=== PATIENT | female | born 1950 | race Caucasian/White ===

== ENCOUNTER 2021-11-07 12:00 | Emergency (ER) | payer OTHER, MEDICAID ==
[~2021-11-07] VITALS: Ht 162.6 cm; Wt 99.8 kg
[2021-11-07 12:11] VITALS: BP 129/82
--- NOTE | 2021-11-07 12:18 | NUR ---
LOBBY Addendum: 11/07/21 at 1224 by [email or web address] HANDED ON URINE CUP.
--- NOTE | 2021-11-07 12:20 | NUR ---
BIB DAUGHTER C/O VAGINAL BLEEDING X4 DAYS, LOWER ABD PAIN X TODAY AND DIARRHEA X 2 MONTHS. DENIES DIARRHEA TODAY. PMH: HLD, HTN, DM, ASTHMA, ARTHRITIS, MASS IN UTERUS.
--- NOTE | 2021-11-07 12:21 | NUR ---
BLOOD SUGAR 230 AT THIS TIME.
--- NOTE | 2021-11-07 12:30 | NUR ---
Patient being evaluated by DR VALENTINE at TRIAGE ROOM.
[2021-11-07] MEDS ORDERED: MORPHINE SULFATE 2 MG/ML SYR IM ONE (12:35)
[2021-11-07 13:00] LABS: BASOPHILS % (AUTO) 0.4 % (0.0-2.0); EOSINOPHILS # (AUTO) 0.2 K/uL (0-0.4); EOSINOPHILS % (AUTO) 2.2 % (0.0-4.0); HEMATOCRIT 34.7 % (36-48); HEMOGLOBIN 11.4 g/dL (12.0-16.0); LYMPHOCYTES # (AUTO) 3.1 K/uL (2.5-16.5); LYMPHOCYTES % (AUTO) 28.7 % (20.5-51.1); MEAN CORPUSCULAR HEMOGLOBIN 28 pg (27-31); MEAN CORPUSCULAR HGB CONC 33 g/dL (33-37); MEAN CORPUSCULAR VOLUME 83.9 fL (80-94); MONOCYTES # (AUTO) 0.6 K/uL (0.8-1.0); MONOCYTES % (AUTO) 5.3 % (1.7-9.3); NEUTROPHILS # (AUTO) 6.8 K/uL (1.8-7.7); NEUTROPHILS % (AUTO) 63.4 % (42.2-75.2); PLATELET COUNT (AUTO) 283 K/uL (140-450); RED BLOOD CELL COUNT(AUTO) 4.14 MIL/uL (4.20-5.40); RED CELL DISTRIBUTION WIDTH 14.7 % (11.6-13.7); WHITE BLOOD COUNT (AUTO) 10.7 K/uL (4.8-10.8)
[2021-11-07 13:30] LABS: ALBUMIN 3.2 g/dL (3.4-5.0); ANION GAP 13.7 (8-16); ASPARTATE AMINOTRANSFERASE 14 U/L (15-37); CARBON DIOXIDE 27.5 mmol/L (21-32); CHLORIDE 104 mmol/L (98-107); CREATININE 0.7 mg/dL (0.6-1.3); GLUCOSE 245 mg/dL (74-106); POTASSIUM 4.2 mmol/L (3.5-5.1); SODIUM SERUM 141 mmol/L (136-145); TOTAL BILIRUBIN 0.3 mg/dL (0.0-1.0); UREA NITROGEN, BLOOD 15 mg/dL (7-18)
[2021-11-07 13:46] LABS: PROTHROMBIN TIME 10.3 secs (10.8-13.4)
--- NOTE | 2021-11-07 14:02 | NUR ---
Pt ambulated to bed 11 for examination by .
[2021-11-07] MEDS ORDERED: ACET-8386 PO (14:19)
[2021-11-07] MEDS ORDERED: IBUP-2213 PO (14:19)
[2021-11-07] MEDS ORDERED: MEDR10TA PO (14:36)
[2021-11-07] MEDS ORDERED: NITR100C7 PO (14:44)
[2021-11-07 15:01] VITALS: BP 154/86
--- NOTE | 2021-11-07 15:01 | NUR ---
Patient discharged with v/s stable. Written and verbal after care instructions given and explained. Patient alert, oriented and verbalized understanding of instructions. Ambulatory with steady gait. All questions addressed prior to discharge. ID band removed. Patient advised to follow up with PMD. Rx of HYDROCODNE/ACETAMINOPHEN, IBUPROFEN, PROVERA, MACROBID given. Patient educated on indication of medication including possible reaction and side effects. Opportunity to ask questions provided and answered.
[2021-11-07 15:12] LABS: APPEARANCE,URINE SL CLOUDY (CLEAR); BILIRUBIN,URINE 2+ (NEGATIVE); BLOOD, URINE 3+ (NEGATIVE); COLOR,URINE BROWN (YELLOW); LEUKOCYTE ESTERASE ,URINE 1+ (NEGATIVE); NITRITE, URINE POSITIVE (NEGATIVE); PH,URINE 6.5 (5.0-9.0); UGLUCOSE TRACE (NEGATIVE)
[2021-11-07 15:37] LABS: RBC,URINE 50-80 /HPF (0-5); WBC,URINE 0-5 /HPF (0-5)
[2021-11-07 15:38] LABS: OTHER CASTS, URINE None Seen /LPF (None Seen)
== END 2021-11-07 15:01 | disposition home or self-care (01) ==
LOC: MED 12:00
DX: N93.9 Abnormal uterine and vaginal bleeding, unspecified (principal); E11.9 Type 2 diabetes mellitus without complications; I10 Essential (primary) hypertension; Z79.899 Other long term (current) drug therapy
CPT/HCPCS: 36415; 76830; 80053; 81001; 85025; 85610; 85730; 87086; 93976; 96372; 99284; J2270

== ENCOUNTER 2022-03-14 16:32 | Inpatient (IN) | payer OTHER ==
[~2022-03-14] VITALS: Ht 160 cm; Wt 83.9 kg
[~2022-03-14 16:32] MED LIST: ACET-8386 PO; IBUP-2213 PO; MEDR10TA PO; NITR100C7 PO
--- NOTE | 2022-03-14 16:32 | NUR ---
PT BIBA, BLS, TO BED 11.
[2022-03-14 16:35] VITALS: BP 153/90
[2022-03-14] MEDS ORDERED: ONDANSETRON 4 MG/2 ML VIAL IVP ONE (16:50)
--- NOTE | 2022-03-14 16:50 | NUR ---
ERMD AT BEDSIDE.
--- NOTE | 2022-03-14 16:57 | NUR ---
71 Y/O FEMALE BIBA FROM HOME C/O ABD PAIN 10/10 DESCRIBES ACHING AND CRAMPING GENERALIZED NON-RADIATING X1DAY. PT STATES LAST BM X3DAYS, STATES +N/-V, + DIZZINESS. DENIES FEVER/CHILLS. ABD IS LARGE, ROUND, BOWEL SOUNDS ACTIVE X4, TENDERNESS TO PALPATION AND MOVEMENT, LAST BM X3DAYS. PMH: DM, HTN, HLD NKA
[2022-03-14] MEDS ORDERED: NACL 0.9% 1,000 ML IV ONE ×2 (17:00→17:45)
[2022-03-14] MEDS ORDERED: MORPHINE SULFATE 4 MG/ML SYR IVP ONE ×2 (17:00→17:45)
--- NOTE | 2022-03-14 17:09 | NUR ---
OBTAINED CT CONSENT PLACED IN PT CHART.
--- NOTE | 2022-03-14 17:10 | NUR ---
BLOOD COLLECTED AND WALKED TO LAB
[2022-03-14 17:14] LABS: BASOPHILS # (AUTO) 0.1 K/uL (0.00-0.22); BASOPHILS % (AUTO) 0.5 % (0.0-2.0); EOSINOPHILS # (AUTO) 0.1 K/uL (0-0.4); EOSINOPHILS % (AUTO) 0.3 % (0.0-4.0); HEMATOCRIT 34.8 % (36-48); HEMOGLOBIN 11.1 g/dL (12.0-16.0); LYMPHOCYTES # (AUTO) 1.8 K/uL (2.5-16.5); LYMPHOCYTES % (AUTO) 11.1 % (20.5-51.1); MEAN CORPUSCULAR HEMOGLOBIN 25 pg (27-31); MEAN CORPUSCULAR HGB CONC 32 g/dL (33-37); MEAN CORPUSCULAR VOLUME 78.3 fL (80-94); MONOCYTES # (AUTO) 0.7 K/uL (0.8-1.0); MONOCYTES % (AUTO) 4.1 % (1.7-9.3); NEUTROPHILS # (AUTO) 13.9 K/uL (1.8-7.7); PLATELET COUNT (AUTO) 237 K/uL (140-450); RED BLOOD CELL COUNT(AUTO) 4.45 MIL/uL (4.20-5.40); RED CELL DISTRIBUTION WIDTH 17.7 % (11.6-13.7); WHITE BLOOD COUNT (AUTO) 16.5 K/uL (4.8-10.8)
[2022-03-14 17:38] LABS: ALBUMIN 3.8 g/dL (3.4-5.0); ANION GAP 13.5 (8-16); ASPARTATE AMINOTRANSFERASE 43 U/L (15-37); CARBON DIOXIDE 24.5 mmol/L (21-32); CHLORIDE 103 mmol/L (98-107); CREATININE 0.6 mg/dL (0.6-1.3); GLUCOSE 183 mg/dL (74-106); LIPASE 54 U/L (73-393); SODIUM SERUM 136 mmol/L (136-145); TOTAL BILIRUBIN 0.4 mg/dL (0.0-1.0); UREA NITROGEN, BLOOD 15 mg/dL (7-18)
[2022-03-14] MEDS ORDERED: PIPERACILLIN/TAZOBACTAM 3.375 GM in DEXTROSE 5% 50 ML IV ONE (17:45)
[2022-03-14] MEDS ORDERED: PIPERACILLIN/TAZOBACTAM 3.375 GM VIAL IV ONE (17:53)
--- NOTE | 2022-03-14 18:19 | NUR ---
PT TAKEN TO CT VIA [facility]
[2022-03-14 18:41] LABS: APPEARANCE,URINE CLEAR (CLEAR); BILIRUBIN,URINE NEGATIVE (NEGATIVE); BLOOD, URINE TRACE-I (NEGATIVE); COLOR,URINE YELLOW (YELLOW); LEUKOCYTE ESTERASE ,URINE NEGATIVE (NEGATIVE); NITRITE, URINE NEGATIVE (NEGATIVE); UGLUCOSE NEGATIVE (NEGATIVE)
[2022-03-14 18:45] LABS: RBC,URINE 0-5 /HPF (0-5)
[2022-03-14 18:46] LABS: WBC,URINE NONE SEEN /HPF (0-5)
--- NOTE | 2022-03-14 19:24 | NUR ---
GAVE REPORT TO GHAZALA RODRIGUEZ. TRANSFER OF CARE AT THIS TIME.
--- NOTE | 2022-03-14 19:35 | NUR ---
REPORT RECEIVED FROM GHAZALA RODRIGUEZ. CONTINUITY OF PT CARE AT THIS TIME.
--- NOTE | 2022-03-14 19:48 | NUR ---
PT LAYING IN BED LOCKED IN LOWEST POSITION W X2 SIDERAILS UP FOR PT SAFETY. PT AWAKE AND ALERT, DENIES ANY PAIN AT THIS TIME OR OTHER SYMPTOMS. ABDOMEN TENDER UPON PALPATION. PT VOIDED ON BED POTTRE APPROX 300CC. PT CONNECTED TO MONITOR W VSS. BREATHING EVEN AND UNLABORED. WILL CONTINUE TO MONITOR. SIGNIFICANT OTHER AT BEDSIDE.
--- NOTE | 2022-03-14 20:22 | NUR ---
Dr. Staples examining patient.
[2022-03-14] MEDS ORDERED: POLYETHYLENE GLYCOL 17 GM/PKT PO ONE (20:25)
[2022-03-14] MEDS ORDERED: SODIUM PHOSPHATE 118 ML ENEM RC ONE (20:25)
[2022-03-14] MEDS ORDERED: LACTULOSE 20 GM/30 ML UDC PO ONE (20:25)
--- NOTE | 2022-03-14 20:30 | NUR ---
swab for efren sent to lab
[2022-03-14] MEDS ORDERED: METF-1253 PO ×2 (21:40)
[2022-03-14] MEDS ORDERED: ZOLPIDEM 5 MG TAB PO PRN (21:40)
[2022-03-14] MEDS ORDERED: guaiFENesin DM 200/20 MG-10 ML 10 ML UDC PO PRN (21:40)
[2022-03-14] MEDS ORDERED: ONDANSETRON 4 MG/2 ML VIAL IM/IVP PRN (21:40)
[2022-03-14] MEDS ORDERED: ACETAMINOPHEN 325 MG TAB PO PRN (21:40)
[2022-03-14] MEDS ORDERED: MONT10TA35 PO (21:40)
[2022-03-14] MEDS ORDERED: DOCUSATE SODIUM 100 MG GELCAP PO PRN (21:40)
[2022-03-14] MEDS ORDERED: LORA10TA19 PO (21:40)
[2022-03-14] MEDS ORDERED: HYDROcodone/APAP 7.5/325 MG 1 TAB PO PRN (21:40)
[2022-03-14] MEDS ORDERED: POTASSIUM CHLORIDE 10 MEQ TABER PO PRN (21:40)
[2022-03-14] MEDS ORDERED: OMEP40EC23 PO (21:40)
[2022-03-14] MEDS ORDERED: SODIUM PHOSPHATE 118 ML ENEM RC SCH (21:45)
[2022-03-14] MEDS ORDERED: ATOR40TA PO (21:54)
[2022-03-14] MEDS ORDERED: CHOLECALCIFEROL 1000 UNIT PO (21:54)
[2022-03-14] MEDS ORDERED: GABA300C PO (21:54)
[2022-03-14] MEDS ORDERED: LOSARTAN HCTZ PO (21:54)
[2022-03-14] MEDS ORDERED: AMLO5TAB PO (21:54)
--- NOTE | 2022-03-14 22:00 | NUR ---
PT REPORTS SHE WAS ABLE TO PAS A SMALL AMOUNT OF BOWL AT THIS TIME AND PLENTY OF LIQUID.
[2022-03-14 22:35] LABS: AMYLASE 31 U/L (25-115); CHOL/HDL RATIO 3.2 (1-4.5); FREE T4 (FREE THYROXINE) 1.03 ng/dL (0.76-1.46); HDL CHOLESTEROL 44 mg/dL (40-60); LDL (CALC) 74 mg/dL (60-100); MAGNESIUM 1.8 mg/dL (1.8-2.4); PHOSPHORUS 3.4 mg/dL (2.5-4.9); THYROID STIMULATING HORMONE 1.58 uIU/mL (0.34-3.74); TRIGLYCERIDES 115 mg/dL (30-150)
[2022-03-14 22:40] LABS: BARBITURATE, URINE NEGATIVE ng/ml (NEG <=200); BENZODIAZEPINE, URINE NEGATIVE ng/mL (NEG <=200); CANNABINOID, URINE NEGATIVE ng/mL (NEG <=50); COCAINE, URINE NEGATIVE ng/mL (NEG <=300); OPIATE, URINE POSITIVE ng/mL (NEG <=2000); PHENCYCLIDINE SCREEN,URINE NEGATIVE ng/mL (NEG <=25)
--- NOTE | 2022-03-14 22:42 | NUR ---
Patient will be admitted to care of DR. CENTENO. Admited to [facility]. Will go to [id number]. Belongings list completed. Report to GHAZALA STEELE.
[2022-03-14 22:50] VITALS: BP 146/79
--- NOTE | 2022-03-14 22:50 | NUR ---
PT TRANSPORTED VIA GURNEY. PT IS AWAKE ON RA SATING 95%. PT HAS 20 GAUGE LEFT AC RUNNING D5% NS9% AT 140 ML/HR. PT IS AAOX4. CLEAR LUNG SOUNDS. ABD DISTENDED AND SOFT. NO HEART MURMURS. PT IS NOT ABLE TO AMBULATE DUE TO ABD PAIN. PT WAS EDUCATED PAYMENT POSTER LIGHT SYSTEM AND ROOM ENVIRONMENT. CALL LIGHT WITHIN REACH. ALL SAFETY MEASURES TAKEN. WILL CONTINUE TO MONITOR THE PT.
[2022-03-14] MEDS: POLYETHYLENE GLYCOL 17 GM/PKT PO SCH (23:08)
[2022-03-14] MEDS: DEXT 5% /NACL 0.9% 1,000 ML IV SCH (23:10)
[2022-03-15] VITALS: BP 118/61
--- NOTE | 2022-03-15 00:16 | NUR ---
PT UNAVAILABLE AT THIS TIME WILL RETURN AT A LATER TIME FOR EKG
--- NOTE | 2022-03-15 00:25 | NUR ---
PT STATED SHE HAD A BIG BM. SHE IS FEELING BETTER. NO OTHER COMPLAINS. ALL SAFETY MEASURES TAKEN. WILL CONTINUE TO MONITOR THE PT.
[2022-03-15] MEDS ORDERED: PIPERACILLIN/TAZOBACTAM 3.375 GM VIAL IV ONE (02:13)
[2022-03-15] MEDS: PIPERACILLIN/TAZOBACTAM 3.375 GM in DEXTROSE 5% 50 ML IV SCH ×3 (02:16→18:38)
--- NOTE | 2022-03-15 02:20 | NUR ---
ALL DUE MEDS GIVEN. NO ADVERSE REACTION NOTED. WILL CONTINUE TO MONITOR THE PT.
[2022-03-15 04:00] VITALS: BP 120/65
--- NOTE | 2022-03-15 04:30 | NUR ---
PT IS SLEEPING IN BED COMFORTABLY. PT IS NOT IN ANY ACUTE DISTRESS. BREATHING EVEN AND UNLABORED. IVF RUNNING PER MD ORDER. CALL LIGHT WITHIN REACH. ALL SAFETY MEASURES TAKEN. WILL CONTINUE TO MONITOR THE PT.
[2022-03-15] MEDS: DEXT 5% /NACL 0.9% 1,000 ML IV SCH ×3 (04:49→22:23)
[2022-03-15 07:01] LABS: BASOPHILS # (AUTO) 0.1 K/uL (0.00-0.22); BASOPHILS % (AUTO) 0.6 % (0.0-2.0); EOSINOPHILS # (AUTO) 0.1 K/uL (0-0.4); EOSINOPHILS % (AUTO) 0.6 % (0.0-4.0); HEMATOCRIT 31.6 % (36-48); HEMOGLOBIN 10.2 g/dL (12.0-16.0); LYMPHOCYTES # (AUTO) 2.3 K/uL (2.5-16.5); LYMPHOCYTES % (AUTO) 16.3 % (20.5-51.1); MEAN CORPUSCULAR HEMOGLOBIN 26 pg (27-31); MEAN CORPUSCULAR HGB CONC 32 g/dL (33-37); MEAN CORPUSCULAR VOLUME 78.7 fL (80-94); MONOCYTES # (AUTO) 0.8 K/uL (0.8-1.0); MONOCYTES % (AUTO) 5.4 % (1.7-9.3); NEUTROPHILS % (AUTO) 77.1 % (42.2-75.2); PLATELET COUNT (AUTO) 202 K/uL (140-450); RED BLOOD CELL COUNT(AUTO) 4.01 MIL/uL (4.20-5.40); RED CELL DISTRIBUTION WIDTH 17.9 % (11.6-13.7); WHITE BLOOD COUNT (AUTO) 14.2 K/uL (4.8-10.8)
--- NOTE | 2022-03-15 07:09 | NUR ---
ENDORSED PT TO DAY SHIFT RN FOR CONTINUITY OF CARE. PT IS STABLE.
[2022-03-15 07:15] LABS: PROTHROMBIN TIME 10.1 secs (10.8-13.4)
[2022-03-15 07:20] LABS: ANION GAP 13.5 (8-16); CARBON DIOXIDE 24.7 mmol/L (21-32); CHLORIDE 107 mmol/L (98-107); CREATININE 0.7 mg/dL (0.6-1.3); GLUCOSE 209 mg/dL (74-106); POTASSIUM 3.2 mmol/L (3.5-5.1); SODIUM SERUM 142 mmol/L (136-145); UREA NITROGEN, BLOOD 10 mg/dL (7-18)
--- NOTE | 2022-03-15 07:20 | NUR ---
RECEIVED REPORT FROM SHAPER HAND NURSE. PT IS LYING ON HER BED, CHEST RISES ON ROOM AIR, BREATHING UNLABORED. PT IS AMBULATORY, BUT NEEDS ASSISTANCE GOING TO THE REST ROOM. PT HAS A PACEMAKER. CONTINENT OF THE BOWEL AND BLADDER. SKIN IS WARM AND INTACT. IV IN PLACE ON LEFT AC, 20G, INFUSING WELL. PT IS STABLE. WILL CONTINUE TO MONITOR. Addendum: 03/15/22 at 1448 by Sean Combs RN RN DISREGARD NOTE. WRONG PT
--- NOTE | 2022-03-15 07:30 | NUR ---
RECEIVED REPORT FROM [employer] SALES NURSE. PT IS LYING ON HER BED, CHEST RISES ON ROOM AIR, BREATHING UNLABORED. PT IS AMBULATORY. CONTINENT OF THE BOWEL AND BLADDER. SKIN IS WARM AND INTACT. IV IN PLACE ON LEFT AC, 20G, INFUSING WELL. PT IS STABLE. WILL CONTINUE TO MONITOR.
[2022-03-15 08:00] VITALS: BP 112/50
[2022-03-15] MEDS ORDERED: NON-FORMULARY ITEM (Metformin HCl (Metformin Hcl) 1 TAB) PO SCH (09:00)
--- NOTE | 2022-03-15 09:13 | NUR ---
PATIENT HAS BEEN SCREENED AND CATEGORIZED HIGH NUTRITION RISK. PATIENT WILL BE SEEN WITHIN 1-2 DAYS OF ADMISSION. / ALICIA GOLDEN RD
[2022-03-15] MEDS: PANTOPRAZOLE 40 MG TABEC PO SCH (09:20)
[2022-03-15] MEDS: LACTULOSE 20 GM/30 ML UDC PO SCH ×2 (09:21→23:08)
[2022-03-15] MEDS: metFORMIN 500 MG TAB PO SCH ×2 (09:26→17:45)
[2022-03-15] MEDS: POLYETHYLENE GLYCOL 17 GM/PKT PO SCH ×2 (09:29→23:08)
--- NOTE | 2022-03-15 10:00 | NUR ---
PER CAROLKAREN- RATE FOR PT'S PACEMAKER IS AT 50. WILL CONTINUE TO MONITOR. Addendum: 03/15/22 at 1447 by Sean Combs RN RN DISREGARD LAST NOTE. WRONG PT
--- NOTE | 2022-03-15 11:30 | NUR ---
PT RESTING IN BED. FAMILY AT BEDSIDE. NO S/S OF DISTRESS. BREATHING IS SYMMETRICAL. CALL LIGHT IN REACH. ALL SAFETY MEASURES IN PLACE.
--- NOTE | 2022-03-15 14:30 | NUR ---
PT LYING ON HER BED, NO DISTRESS AT THIS TIME.
[2022-03-15 16:00] VITALS: BP 119/57
--- NOTE | 2022-03-15 17:49 | NUR ---
K-DUR MEDICATION GIVEN, POTASSIUM IS LOW. PT REFUSED TO TAKE METFORMIN. WILL CONTINUE TO MONITOR.
--- NOTE | 2022-03-15 19:20 | NUR ---
GAVE REPORT TO MACHINE PACKAGER NURSE, PT IS STABLE. PLAN OF CARE DISCUSSED.
[2022-03-15 20:00] VITALS: BP 125/82
--- NOTE | 2022-03-15 22:30 | NUR ---
ROUNDS , C/O MILD ABDL PAIN - WILL MEDICATE .
[2022-03-15] MEDS: MONTELUKAST SODIUM 10 MG TAB PO SCH (23:09)
[2022-03-16] VITALS: BP 132/60
--- NOTE | 2022-03-16 02:00 | NUR ---
ASSISTING TO THE REST ROOM - PER PT SHE HAS NO BM YET .
[2022-03-16] MEDS: DEXT 5% /NACL 0.9% 1,000 ML IV SCH ×3 (02:16→17:10)
[2022-03-16] MEDS: PIPERACILLIN/TAZOBACTAM 3.375 GM in DEXTROSE 5% 50 ML IV SCH ×3 (02:28→17:16)
[2022-03-16 04:00] VITALS: BP 132/60
--- NOTE | 2022-03-16 04:00 | NUR ---
ROUNDS , PER PT SHE HAS ON AND OFF BEARABLE ADBL .PAIN . WILL CONT. TO MONITOR
--- NOTE | 2022-03-16 06:00 | NUR ---
ROUNDS - IV SITE INFILTRATED - REMOVE IV NEEDLE - INTACT AND MIN BLEEDING . WILL RE INSERT NEW ONE .
--- NOTE | 2022-03-16 06:30 | NUR ---
RE INSERT NEW IV SITE - PROCEDURE TOLERATED WELL BY THE PT - MIN. BLEEDING - WILL CONT. TO MONITOR .
[2022-03-16 06:59] LABS: BASOPHILS % (AUTO) 0.4 % (0.0-2.0); EOSINOPHILS # (AUTO) 0.3 K/uL (0-0.4); EOSINOPHILS % (AUTO) 2.4 % (0.0-4.0); HEMATOCRIT 32.1 % (36-48); HEMOGLOBIN 10.4 g/dL (12.0-16.0); LYMPHOCYTES # (AUTO) 2.5 K/uL (2.5-16.5); LYMPHOCYTES % (AUTO) 23.7 % (20.5-51.1); MEAN CORPUSCULAR HEMOGLOBIN 25 pg (27-31); MEAN CORPUSCULAR HGB CONC 32 g/dL (33-37); MEAN CORPUSCULAR VOLUME 78.1 fL (80-94); MONOCYTES # (AUTO) 0.8 K/uL (0.8-1.0); MONOCYTES % (AUTO) 7.7 % (1.7-9.3); NEUTROPHILS % (AUTO) 65.8 % (42.2-75.2); PLATELET COUNT (AUTO) 176 K/uL (140-450); RED BLOOD CELL COUNT(AUTO) 4.11 MIL/uL (4.20-5.40); RED CELL DISTRIBUTION WIDTH 17.5 % (11.6-13.7); WHITE BLOOD COUNT (AUTO) 10.7 K/uL (4.8-10.8)
--- NOTE | 2022-03-16 07:40 | NUR ---
ENDORSE - PT - STABLE - I ENDORSE TO CONRAD RN - HOLD THE METFORMIN FOR 48HRS .AND SHE HAVE TO REMINDS THE DOCTOR THIS AM DURING ROUNDS , ABOUT BS MONITORING . NURSE CONRAD VERBALIZES UNDERSTANDING .
[2022-03-16] MEDS: metFORMIN 500 MG TAB PO SCH ×3 (08:00→17:00)
--- NOTE | 2022-03-16 08:00 | NUR ---
OPENING RECEIVED PATIENT LAYING IN BED, AWAKE ALERT AND ORIENTED, PATIENT WAS COMPLAINING OF ABDOMINAL PAIN AND WAS HAVING DIFFICULTY HAVING A BOWEL MOVEMENT. PATIENT SKIN IA WARM DRY AND INTACT, NO PRESENCE OF PRESSURE INJURY OR SORES. S1 AND S2 HEARD UPON AUSCULTATION OF THE HEART SOUNDS, NO EXTRA SOUNDS HEARD. PATIENT LUNGS ARE CLEAR AND BOWELS SOUNDS ARE NORMAL ACTIVE, ABDOMEN DISTENDED BUT SOFT. CALL LIGHT WITHIN REACH, PERSONAL BELONGINGS WITHIN REACH. BE AT LOWEST POSITION AND LOCKED.
[2022-03-16 08:08] LABS: T4 (THYROXINE) 6.6 ug/dL (4.5-12.0)
[2022-03-16 08:17] LABS: ANION GAP 13.7 (8-16); CARBON DIOXIDE 25.9 mmol/L (21-32); CHLORIDE 107 mmol/L (98-107); CREATININE 0.7 mg/dL (0.6-1.3); GLUCOSE 203 mg/dL (74-106); POTASSIUM 3.6 mmol/L (3.5-5.1); SODIUM SERUM 143 mmol/L (136-145); UREA NITROGEN, BLOOD 6 mg/dL (7-18)
[2022-03-16] MEDS: POLYETHYLENE GLYCOL 17 GM/PKT PO SCH ×2 (09:00→21:53)
[2022-03-16] MEDS: LACTULOSE 20 GM/30 ML UDC PO SCH ×2 (09:01→21:53)
[2022-03-16] MEDS: PANTOPRAZOLE 40 MG TABEC PO SCH (09:03)
--- NOTE | 2022-03-16 12:00 | NUR ---
PATIENT DAUGHTER AT BEDSIDE, PATIENT HAD A BOWEL MOVEMENT, FORMED. PATIENT STILL WITH UNRELIEVED ABDOMINAL PAIN. DAUGHTER ASKING ABOUT DISCHARGE, CALL LIGHT WITHIN REACH, PERSONAL BELONGINGS NEAR BY, BED AT LOWEST POSITION AND LOCKED.
--- NOTE | 2022-03-16 13:46 | NUR ---
03/16/22 RD INITIAL ASSESSMENT COMPLETED PLEASE REFER TO NUTRITION ASSESSMENT UNDER CARE ACTIVITY FOR ESTIMATED NUTRITIONAL NEEDS. 1. WHEN/IF MEDICALLY APPROPRIATE TO START ORAL INTAKE, [facility] 2. PROVIDED NUTRITION EDUCATION FOR DIABETES AND CONSTIPATION WITH HANDOUTS 3. RD TO FOLLOW-UP 2-3 DAYS, HIGH RISK ALICIA GOLDEN RD
--- NOTE | 2022-03-16 14:53 | NUR ---
DC PLANNING: THE PATIENT ADMITTED FROM HOME WITH C/O ABDOMINAL PAIN AND CONSTIPATION. H/O DM, HTN, HYPERLIPIDEMIA AND OVARIAN CANCER PER HER DAUGHTER. WBC'S 16.5, CT ABD/PELVIS SHOWS VENTRAL HERNIA CONTAINING BOWEL LOOPS AND CONSTIPATION. STARTED ON ZOSYN IV, IVF'S, LACTULOSE AND MIRALAX. SURGICAL CONSULT ORDERED FOR HERNIA. CM SPOKE WITH THE PATIENTS DAUGHTER RAGHAV BY PHONE AND CONFIRMED HER ADDRESS AND PHONE NUMBER. THE PATIENT LIVES WITH HER DAUGHTER, SON IN LAW AND GRANDCHILD IN A SINGLE STORY HOUSE. SHE HAD SURGERY IN DECEMBER OF THIS YEAR FOR OVARIAN CANCER AND HAS BEEN AMBULATING LESS SINCE THEN USING A FWW. THE PATIENT HAS A GLUCOMETER AND SEES HER PCP DR CROWELL AT [facility] NEEDED. SHE REQUIRES ASSISTANCE WITH ADL'S AND HER DAUGHTER IN LAW IS IN THE PROCESS OF APPLYING TO BE HER IHSS WORKER SHE CURRENTLY GOES EVERYDAY TO HELP THE PATIENT NEEDED. THE PATIENT HAS NOT HAD HOME HEALTH IN THE PAST OR BEEN IN A SNF. THE FAMILY WOULD LIKE HOME HEALTH WHEN THE PATIENT DISCHARGES AND UNDERSTANDS THAT IT WILL BE AN AGENCY THAT THE PATIENT INSURANCE CONTRACTS WITH. DC PLAN IS TO RETURN HOME WHEN STABLE, CM WILL FOLLOW. Addendum: 03/16/22 at 1503 by Elana Peters CM Amended: Links added.
[2022-03-16 15:38] VITALS: BP 138/70
--- NOTE | 2022-03-16 18:00 | NUR ---
PATIENT LAYING IN BED WITH SON AT BEDSIDE, PERSONAL BELONGINGS, CALL LIGHT WITHIN REACH, BED AT LOWEST POSITION.
--- NOTE | 2022-03-16 20:00 | NUR ---
PER AM NURSE , PT HAD BM , PT NOT C.O PAIN. .
[2022-03-16] MEDS: MONTELUKAST SODIUM 10 MG TAB PO SCH (21:53)
--- NOTE | 2022-03-17 | NUR ---
ROUNDS , NO COMPLAIN MADE .
--- NOTE | 2022-03-17 02:00 | NUR ---
SLEEPING . CALL LIGHT WITHIN REACH
[2022-03-17] MEDS: PIPERACILLIN/TAZOBACTAM 3.375 GM in DEXTROSE 5% 50 ML IV SCH ×2 (03:00→10:23)
--- NOTE | 2022-03-17 04:00 | NUR ---
NO COMPLAIN MADE .
--- NOTE | 2022-03-17 06:00 | NUR ---
I FOUND PT WEARING ABDL BINDER - SHE SAID SHE IS COMFORTABLE W/ IT .- WILL ENDORSE.
[2022-03-17] MEDS: DEXT 5% /NACL 0.9% 1,000 ML IV SCH ×2 (06:24→06:52)
[2022-03-17 06:44] LABS: BASOPHILS % (AUTO) 0.4 % (0.0-2.0); EOSINOPHILS # (AUTO) 0.4 K/uL (0-0.4); EOSINOPHILS % (AUTO) 4.6 % (0.0-4.0); HEMATOCRIT 30.4 % (36-48); HEMOGLOBIN 9.9 g/dL (12.0-16.0); LYMPHOCYTES % (AUTO) 33.3 % (20.5-51.1); MEAN CORPUSCULAR HEMOGLOBIN 26 pg (27-31); MEAN CORPUSCULAR HGB CONC 33 g/dL (33-37); MEAN CORPUSCULAR VOLUME 78.1 fL (80-94); MONOCYTES # (AUTO) 0.7 K/uL (0.8-1.0); MONOCYTES % (AUTO) 8.4 % (1.7-9.3); NEUTROPHILS # (AUTO) 4.7 K/uL (1.8-7.7); NEUTROPHILS % (AUTO) 53.3 % (42.2-75.2); PLATELET COUNT (AUTO) 170 K/uL (140-450); RED CELL DISTRIBUTION WIDTH 18.3 % (11.6-13.7); WHITE BLOOD COUNT (AUTO) 8.9 K/uL (4.8-10.8)
[2022-03-17 06:50] LABS: ANION GAP 10.6 (8-16); CARBON DIOXIDE 25.9 mmol/L (21-32); CHLORIDE 109 mmol/L (98-107); CREATININE 0.6 mg/dL (0.6-1.3); GLUCOSE 219 mg/dL (74-106); POTASSIUM 3.5 mmol/L (3.5-5.1); SODIUM SERUM 142 mmol/L (136-145); UREA NITROGEN, BLOOD 3 mg/dL (7-18)
--- NOTE | 2022-03-17 07:31 | NUR ---
ENDORSE - PT - STABLE . - ENDORSE TO RN TO INFORM DR. DAVI COOK IF IT IS OK THE PT. WEARING HENOKL . SANDRO - RN VERBALIZES UNDERSTANDING .
[2022-03-17 08:00] VITALS: BP 129/92
[2022-03-17] MEDS ORDERED: DOCU-299 PO (08:43)
[2022-03-17] MEDS ORDERED: POLY17PD72 PO (08:43)
[2022-03-17] MEDS: LACTULOSE 20 GM/30 ML UDC PO SCH (09:06)
[2022-03-17] MEDS: metFORMIN 500 MG TAB PO SCH (09:07)
[2022-03-17] MEDS: PANTOPRAZOLE 40 MG TABEC PO SCH (09:07)
[2022-03-17] MEDS: POLYETHYLENE GLYCOL 17 GM/PKT PO SCH (09:08)
[2022-03-17 13:24] VITALS: BP 129/92
--- NOTE | 2022-03-17 14:00 | NUR ---
patient home in stable condition and dc instructions given. home per wheelchair accompanied by family.
== END 2022-03-17 14:25 | disposition home or self-care (01) | DRG 872 ==
LOC: MED 16:32 → MTU 21:34
PROVIDERS: ADMIT Family Medicine; ATTEND Family Medicine
DX: A41.9 Sepsis, unspecified organism (principal); E86.0 Dehydration; K52.9 Noninfective gastroenteritis and colitis, unspecified; K56.41 Fecal impaction; K43.9 Ventral hernia without obstruction or gangrene; E87.6 Hypokalemia; J45.909 Unspecified asthma, uncomplicated; E11.9 Type 2 diabetes mellitus without complications; E66.9 Obesity, unspecified; Z20.822 Contact with and (suspected) exposure to COVID-19; E78.5 Hyperlipidemia, unspecified; I10 Essential (primary) hypertension; Z90.710 Acquired absence of both cervix and uterus; Z79.899 Other long term (current) drug therapy; Z90.49 Acquired absence of other specified parts of digestive tract; Z85.43 Personal history of malignant neoplasm of ovary; Z85.42 Personal history of malignant neoplasm of other parts of uterus; Z68.32 Body mass index [BMI] 32.0-32.9, adult
CPT/HCPCS: 36415; 71045; 80048; 80053; 80305; 81001; 82150; 82948; 83036; 83605; 83690; 83735; 83880; 84100; 84436; 84439; 84443; 84479; 84484; 85025; 85610; 85730; 87081; 96361; 96365; 96375; 96376; 99291; J2270; J2405; J2543; J7030; J7060; Q9967

== ENCOUNTER 2022-06-02 19:05 | Inpatient (IN) | payer OTHER ==
[~2022-06-02] VITALS: Ht 160 cm; Wt 83.9 kg
[~2022-06-02 19:05] MED LIST changes: -ACET-8386 PO; +AMLO5TAB PO; +ATOR40TA PO; +CHOLECALCIFEROL 1000 UNIT PO; +DOCU-299 PO; +GABA300C PO; +LORA10TA19 PO; +LOSARTAN HCTZ PO; -MEDR10TA PO; +METF-1253 PO; +MONT10TA35 PO; -NITR100C7 PO; +POLY17PD72 PO
[2022-06-02 19:43] VITALS: BP 147/80
--- NOTE | 2022-06-02 20:10 | NUR ---
Juan quinonez in [facility] - 06/02/22 at 2104 by [email or web address] Patient taken to CT scan.
[2022-06-02 20:25] LABS: BASOPHILS # (AUTO) 0.3 K/uL (0.00-0.22); BASOPHILS % (AUTO) 2.6 % (0.0-2.0); EOSINOPHILS # (AUTO) 0.4 K/uL (0-0.4); EOSINOPHILS % (AUTO) 2.9 % (0.0-4.0); HEMATOCRIT 40.7 % (36-48); LYMPHOCYTES # (AUTO) 2.6 K/uL (2.5-16.5); MEAN CORPUSCULAR HEMOGLOBIN 26 pg (27-31); MEAN CORPUSCULAR HGB CONC 32 g/dL (33-37); MEAN CORPUSCULAR VOLUME 81.2 fL (80-94); MONOCYTES # (AUTO) 0.5 K/uL (0.8-1.0); MONOCYTES % (AUTO) 3.8 % (1.7-9.3); NEUTROPHILS # (AUTO) 8.7 K/uL (1.8-7.7); NEUTROPHILS % (AUTO) 69.7 % (42.2-75.2); PLATELET COUNT (AUTO) 203 K/uL (140-450); RED BLOOD CELL COUNT(AUTO) 5.01 MIL/uL (4.20-5.40); RED CELL DISTRIBUTION WIDTH 19.1 % (11.6-13.7); WHITE BLOOD COUNT (AUTO) 12.5 K/uL (4.8-10.8)
[2022-06-02 20:42] LABS: ALBUMIN 4.1 g/dL (3.4-5.0); ANION GAP 13.6 (8-16); ASPARTATE AMINOTRANSFERASE 19 U/L (15-37); CARBON DIOXIDE 29.9 mmol/L (21-32); CHLORIDE 104 mmol/L (98-107); CREATININE 0.7 mg/dL (0.6-1.3); GLUCOSE 156 mg/dL (74-106); LIPASE 85 U/L (73-393); POTASSIUM 4.5 mmol/L (3.5-5.1); SODIUM SERUM 143 mmol/L (136-145); TOTAL BILIRUBIN 0.2 mg/dL (0.0-1.0); UREA NITROGEN, BLOOD 13 mg/dL (7-18)
--- NOTE | 2022-06-02 21:04 | NUR ---
Patient taken to CT scan.
[2022-06-02] MEDS ORDERED: MORPHINE SULFATE 4 MG/ML SYR IVP ONE (22:25)
[2022-06-02] MEDS ORDERED: ONDANSETRON 4 MG/2 ML VIAL IVP ONE (22:25)
[2022-06-02] MEDS ORDERED: NACL 0.9% 1,000 ML IV ONE (22:25)
--- NOTE | 2022-06-02 22:31 | NUR ---
2231 - PT TO BED WITH RN
--- NOTE | 2022-06-02 22:35 | NUR ---
MOTION PICTURE SET UP WORKER MARGO #[id number]
--- NOTE | 2022-06-02 23:05 | NUR ---
71 Y.O. F BIB C/O abdominal pain x today. Patient reported, had abdominal pain this morning. No N/V/D. 510 PAIN. LAST BM @1700. NO SOB NOR CHEST PAIN. PT IS AMBULATORY. 18G L AC AND 20G R HAND. A&OX4, SKIN INTACT, VITALS WNL, AND SKIN INTACT. PMHx: DM, HTN, HLD, Overy Cancer NKA
[2022-06-02] MEDS ORDERED: INSU100S22 SUBQ ×2 (23:11)
[2022-06-03] MEDS ORDERED: guaiFENesin DM 200/20 MG-10 ML 10 ML UDC PO PRN (00:10)
[2022-06-03] MEDS ORDERED: ZOLPIDEM 5 MG TAB PO PRN (00:10)
[2022-06-03] MEDS ORDERED: DOCUSATE SODIUM 100 MG GELCAP PO PRN (00:10)
[2022-06-03] MEDS ORDERED: ACETAMINOPHEN 325 MG TAB PO PRN (00:10)
[2022-06-03] MEDS ORDERED: HYDROmorphone PFS 2 MG/ML SYR IM PRN (00:15)
[2022-06-03 00:32] LABS: PROTHROMBIN TIME 9.5 secs (10.8-13.4)
[2022-06-03 00:42] LABS: FREE T4 (FREE THYROXINE) 0.93 ng/dL (0.76-1.46); MAGNESIUM 2.1 mg/dL (1.8-2.4); PHOSPHORUS 4.5 mg/dL (2.5-4.9); THYROID STIMULATING HORMONE 1.44 uIU/mL (0.34-3.74)
[2022-06-03] MEDS: DEXT 5% /NACL 0.9% 1,000 ML IV SCH ×3 (02:00→16:50)
--- NOTE | 2022-06-03 02:10 | NUR ---
URINE COLLECTED AND WALKED TO LAB
[2022-06-03 02:25] LABS: APPEARANCE,URINE CLEAR (CLEAR); BILIRUBIN,URINE NEGATIVE (NEGATIVE); BLOOD, URINE TRACE-I (NEGATIVE); COLOR,URINE YELLOW (YELLOW); LEUKOCYTE ESTERASE ,URINE NEGATIVE (NEGATIVE); NITRITE, URINE NEGATIVE (NEGATIVE); PH,URINE 5.5 (5.0-9.0); UGLUCOSE NEGATIVE (NEGATIVE)
[2022-06-03 02:35] LABS: RBC,URINE 0-5 /HPF (0-5); WBC,URINE 0-5 /HPF (0-5)
[2022-06-03] MEDS: MORPHINE SULFATE 2 MG/ML SYR IVP PRN ×2 (05:25→13:44)
--- NOTE | 2022-06-03 07:30 | NUR ---
Pt report given to GHAZALA FERREIRA. Transfer of care at this time.
--- NOTE | 2022-06-03 07:31 | NUR ---
REPORT RECEIVED FROM AARON VIVAR, TRANSFER OF CARE AT THIS TIME. PT RESTING IN BED AT THIS TIME. C/O 06/06 PAIN. PT ON ELECTRIC WIRER, VSS. PT A/O X4. WILL MOVE PT TO M/S BED WHEN AVAILABLE.
[2022-06-03 08:04] VITALS: BP 149/88
--- NOTE | 2022-06-03 08:04 | NUR ---
PT WAS BROUGHT IN BY WHEELCHAIR. MILD DISTRESS NOTED, PT REPORTING SEVERE 10/10 PAIN AND NAUSEA. PT AMBULATED FROM WHEELCHAIR TO THE RESTROOM. BEDSIDE REPORT GIVEN BY JHON VIVAR. PT AMBULATED TO BED WITH STEADY GAIT. IV TO LEFT AC 18G RUNNING D5NS @120. SKIN INTACT. ALERT AND ORIENTED X4. MED-SURG STATUS, RRR HEART SOUNDS, CLEAR LUNG SOUNDS ON ROOM AIR WITH CHEST RISING AND FALLING EVEN AND UNLABORED, TACHYPNEA NOTED AT 25. PT ABDOMEN DISTENDED, ACTIVE BOWEL SOUNDS HEARD IN UPPER AND LOWER RIGHT QUADRANTS. UPPER LEFT HYPOACTIVE, LOWER LEFT ABSENT BOWEL SOUNDS. NO EDEMA NOTED. +2 PEDAL PULSES NOTED. FULL ADMISSION ASSESSMENT COMPLETED. ALL SAFETY MEASURES IN PLACE, CALL LIGHT WITHIN REACH. WILL CONTINUE TO MONITOR.
--- NOTE | 2022-06-03 08:05 | NUR ---
Patient will be admitted to care of DR CENTENO. Admited to [facility]. Will go to room 121B. Belongings list completed. Report to ZAY VIVAR.
[2022-06-03] MEDS: PANTOPRAZOLE 40 MG INJ VIAL IVP SCH (08:19)
[2022-06-03] MEDS: ONDANSETRON 4 MG/2 ML VIAL IM/IVP PRN (08:19)
--- NOTE | 2022-06-03 08:21 | NUR ---
PRN PAIN AND NAUSEA MEDICATION ADMINISTERED PER MD ORDER, PT TOLERATED ADMINISTRATION. PT HAD LARGE EMESIS, PT CLEANED, NEW SHEET AND GOWN PROVIDED. PT SITTING AT BEDSIDE CHAIR. ALL SAFETY MEASURES IN PLACE, CALL LIGHT WITHIN REACH. WILL CONTINUE TO MONITOR.
--- NOTE | 2022-06-03 09:00 | NUR ---
DAUGHTER AT BEDSIDE, QUESTIONS ANSWERED. PT REPORTS PAIN BEING TOLERABLE AND NO MORE NAUSEA. ALL SAFETY MEASURES IN PLACE, CALL LIGHT WITHIN REACH. WILL CONTINUE TO MONITOR.
--- NOTE | 2022-06-03 09:54 | NUR ---
PAGED DR SANTANA PER DR CENTENO ORDER FOR URGENT SURGICAL CONSULT
--- NOTE | 2022-06-03 11:28 | NUR ---
DR. PENN AT BEDSIDE, ASSESSING PT. REQUESTING TO BE CONTACTED WHEN RESULTS FOR THE SMALL BOWEL FOLLOW THROUGH COMES IN.
--- NOTE | 2022-06-03 12:04 | NUR ---
NEW IV FLUIDS STARTED FOR PT, PT REPORTS TOLERABLE PAIN LEVEL. ALL SAFETY MEASURES IN PLACE. CALL LIGHT WITHIN REACH. WILL CONTINUE TO MONITOR.
[2022-06-03] MEDS ORDERED: DEXTROSE 50% 50 ML SYR IVP PRN (12:40)
[2022-06-03 16:00] VITALS: BP 159/82
[2022-06-03] MEDS: BLOOD GLUCOSE MONITORING 1 DEV DEV FS SCH ×2 (16:30→21:23)
[2022-06-03] MEDS: INSULIN LISPRO SLIDING SCALE 100 UNITS/ML VIAL SUBQ PRN ×2 (16:35→21:24)
--- NOTE | 2022-06-03 16:57 | NUR ---
PATIENT HAS BEEN SCREENED AND CATEGORIZED HIGH NUTRITION RISK. PATIENT WILL BE SEEN WITHIN 1-2 DAYS OF ADMISSION. REFERRAL RECEIVED FOR NAUSEA OVER THREE DAYS [address]
--- NOTE | 2022-06-03 19:43 | NUR ---
SBAR REPORT GIVEN TO SHARA VIVAR, ALL CARES ENDORSED.
--- NOTE | 2022-06-03 19:45 | NUR ---
SPOKE WITH SURGICAL SCHEDULOR ALIZA, STATED DR SANTANA GAVE VERBAL ORDERS FOR SURGERY TOMORROW AT 5AM. CONSENT IS NEEDED AND TO KEEP PATIENT NPO WITH MEDICATION ONLY FOR SURGERY TOMORROW. KUB HAS NOT BEEN COMPLETED BUT ORDER FOR SURGERY STILL STANDS. [email or web address]
--- NOTE | 2022-06-03 19:46 | NUR ---
RECEIVED PATIENT REPORT FROM SANTIAGO RN. PATIENT WAS IN BED WITH DAUGHTER AT BED SIDE. PATIENT IS CHILEAN SPEAKING ONLY. PATIENT WAS SHOWING FACIAL GRIMACING BUT DENYING SHE NEED PAIN MEDICATION. PATIENT EDUCATION WAS GIVEN TO NOT MINIMIZE PAIN BECAUSE IT IS UNDERSTOOD THE NEED TO GIVE MEDICATION TO STAY COMFORTABLE. PATIENT UNDERSTOOD AND AGREED. NURSING WILL FOLLOW UP WITH LAB FOR KUB TO HAVE PATIENT SCHEDULED FOR SURGERY TOMORROW WITH DR SANTANA. PATIENT WILL WILL HAVE PRN MEDICATION WITH EVENING MEDICATION AND ACCUCHECK. [id number] WILL REMAIN ON NPO STATUS EXCEPT MEDICATION UNTIL FURTHER NOTICE FROM MD OR SURGEON. SIDE RAILS UP X 2 FOR SAFETY AND ADJUSTMENTS. CALL LIGHT WITHIN REACH FOR ASSISTANCE AND NEEDS. [email or web address]
[2022-06-03] MEDS: HYDROcodone/APAP 7.5/325 MG 1 TAB PO PRN (20:35)
--- NOTE | 2022-06-03 20:35 | NUR ---
PATIENT GAVE CONSENT FO SURGERY TOMORROW WITH BAG SHAKER ON VOYCE. DAUGHTER WAS CALLED TO BE AT MOTHERS BEDSIDE FO ANY POSSIBLE QUESTION AND CONCERNS. PER NURSING JUDGEMENT DAUGHTER WAS REQUESTED TO REMAIN AT MOTHER BEDSIDE FOR COMFORT. COVERING RN WAS MADE AWARE OF PATIENT COMPLAINING ON NAUSEA AND REQUESTED FOR NAUSEA MEDICATION. NURSING WILL FOLLOW UP IN ONE HOUR FOR EFFECTIVENESS. [email or web address]
--- NOTE | 2022-06-03 21:19 | NUR ---
DR SANTANA IS AT HOME AND CANNOT PLACE ORDER, DR CENTENO WAS CALLED TO PLACE ORDER AND CANNOT BECAUSE HE IS NOT THE SURGEON. NO DESKTOP PUBLISHING ASSOCIATE TO ASSIST BY PLACING THE ORDER. SURGICAL DEPARTMENT HAS ALL GONE AND NO ORDER IN THE CHART AT THIS TIME. WILL ALERT AM SCREW REMOVER OF THESE MATTERS TO HAVE ORDER PLACED TO NOT DELAY SURGERY. [email or web address]
--- NOTE | 2022-06-04 00:30 | NUR ---
CURRENTLY PATIENT IN BED ASLEEP. NOTED CHEST RISING AND FALLING EVENLY WITHOUT DISTRESS. NO NOTED S/S OF PAIN/DISCOMFORT. SIDE RAILS UP X 2. PRE-OP CHECK LIST HAS BEEN COMPLETED. PATIENT IS ON THE SURGICAL LIST FOR SURGERY AT 0500 06/04/22. CALL LIGHT WITHIN REACH FOR ASSISTANCE. [email or web address]
[2022-06-04] MEDS: DEXT 5% /NACL 0.9% 1,000 ML IV SCH ×3 (01:10→18:21)
--- NOTE | 2022-06-04 02:36 | NUR ---
CURRENTLY PATIENT IN BED ASLEEP. NOTED CHEST RISING AND FALLING EVENLY WITHOUT DISTRESS. NO NOTED S/S OF PAIN/DISCOMFORT. SIDE RAILS UP X 2. CALL LIGHT WITHIN REACH FOR ASSISTANCE. [email or web address]
[2022-06-04 04:00] VITALS: BP 109/56
--- NOTE | 2022-06-04 04:01 | NUR ---
PATIENT IN BED ASLEEP. NO S/S IF PAIN/DISCOMFORT. NO NOTED RESPIRATORY ISSUES AT THIS TIME. SIDE RAILS UP X 2 FOR ADJUSTMENT AND COMFORT. CALL LIGHT WITHIN REACH FOR ASSISTANCE AND NEEDS. [email or web address]
[2022-06-04] MEDS ORDERED: fentaNYL citrate 0.05 MG/ML VIAL ONE (05:05)
[2022-06-04] MEDS ORDERED: SUCCINYLCHOLINE CHLORIDE 200 MG/10 ML VIAL IVP ONE (05:06)
[2022-06-04] MEDS ORDERED: PROPOFOL 200 MG/20 ML VIAL IV ONE (05:06)
[2022-06-04 05:50] LABS: ANION GAP 9.8 (8-16); CARBON DIOXIDE 25.6 mmol/L (21-32); CHLORIDE 109 mmol/L (98-107); CREATININE 0.5 mg/dL (0.6-1.3); GLUCOSE 194 mg/dL (74-106); POTASSIUM 3.4 mmol/L (3.5-5.1); SODIUM SERUM 141 mmol/L (136-145); UREA NITROGEN, BLOOD 10 mg/dL (7-18)
--- NOTE | 2022-06-04 06:23 | NUR ---
PATIENT WAS TRANSPORT VIA GURNEY BY SURGERY TEAM. [email or web address]
[2022-06-04] MEDS ORDERED: SEVOFLURANE 250 ML BTL INH ONE (07:00)
[2022-06-04] MEDS ORDERED: ONDANSETRON 4 MG/2 ML VIAL ONE (07:00)
[2022-06-04 07:09] LABS: T4 (THYROXINE) 7.3 ug/dL (4.5-12.0)
[2022-06-04] MEDS ORDERED: ROCURONIUM 50 MG/5 ML VIAL IV ONE (07:19)
[2022-06-04] MEDS ORDERED: PIPERACILLIN/TAZOBACTAM 3.375 GM VIAL IV ONE (07:20)
[2022-06-04] MEDS ORDERED: BUPIVACAINE-MPF/EPI 0.25% 10 ML VIAL INJ ONE (07:22)
[2022-06-04] MEDS: BLOOD GLUCOSE MONITORING 1 DEV DEV FS SCH ×4 (07:30→21:28)
--- NOTE | 2022-06-04 07:47 | NUR ---
RECEIVED REPORT FROM NIGHTSHIFT NURSE VELASQUEZ. PT IS CURRENTLY OFF UNIT IN OR.
--- NOTE | 2022-06-04 07:47 | NUR ---
PATIENT IS OFF THE UNIT BUT SHIFT REPORT WAS GIVEN TO DELMAR VIVAR. [email or web address]
[2022-06-04 08:15] LABS: BASOPHILS % (AUTO) 0.2 % (0.0-2.0); EOSINOPHILS # (AUTO) 0.1 K/uL (0-0.4); EOSINOPHILS % (AUTO) 0.9 % (0.0-4.0); HEMATOCRIT 33.9 % (36-48); HEMOGLOBIN 11.2 g/dL (12.0-16.0); LYMPHOCYTES # (AUTO) 2.2 K/uL (2.5-16.5); LYMPHOCYTES % (AUTO) 19.4 % (20.5-51.1); MEAN CORPUSCULAR HEMOGLOBIN 27 pg (27-31); MEAN CORPUSCULAR HGB CONC 33 g/dL (33-37); MEAN CORPUSCULAR VOLUME 80.2 fL (80-94); MONOCYTES % (AUTO) 8.8 % (1.7-9.3); NEUTROPHILS % (AUTO) 70.7 % (42.2-75.2); PLATELET COUNT (AUTO) 183 K/uL (140-450); RED BLOOD CELL COUNT(AUTO) 4.23 MIL/uL (4.20-5.40); RED CELL DISTRIBUTION WIDTH 18.9 % (11.6-13.7); WHITE BLOOD COUNT (AUTO) 11.4 K/uL (4.8-10.8)
[2022-06-04] MEDS: PANTOPRAZOLE 40 MG INJ VIAL IVP SCH (09:00)
[2022-06-04] MEDS ORDERED: NEOSTIGMINE 1:1000 10 MG/10 ML VIAL ONE ×2 (09:28)
[2022-06-04] MEDS ORDERED: GLYCOPYRROLATE 0.2 MG/ML VIAL ONE ×3 (09:28)
[2022-06-04] MEDS ORDERED: METOCLOPRAMIDE 10 MG/2 ML INJ VIAL IVP PRN (09:55)
[2022-06-04] MEDS ORDERED: NACL 0.9% 1,000 ML IV SCH (09:55)
[2022-06-04] MEDS ORDERED: LABETALOL 20 MG/4 ML VIAL IVP PRN (09:55)
[2022-06-04] MEDS ORDERED: BLOOD GLUCOSE MONITORING 1 DEV DEV FS SCH (09:55)
[2022-06-04] MEDS ORDERED: hydrALAZINE 20 MG/ML VIAL IVP PRN (09:56)
[2022-06-04] MEDS: HYDROmorphone 1 MG/ML AMP IVP PRN ×5 (10:07→21:53)
[2022-06-04] MEDS ORDERED: HYDROmorphone PFS 2 MG/ML SYR ONE (10:09)
[2022-06-04 11:40] VITALS: BP 116/98
--- NOTE | 2022-06-04 11:40 | NUR ---
PT HAS RETURNED FROM OR IN STABLE CONDITION. PT IS A/OX4, BREATHING EVEN, REGULAR AND UNLABORED ON 4L VIA FACEMASK. NG TUBE INSERTED IN RIGHT NARE TO LOW INTERMITTENT SUCTION. THAO CATHETER PATENT AND HANGING BY GRAVITY. INCISION ON MIDLINE ABDOMEN. PT IS CURRENTLY SLEEPING AND DENIES PAIN.
[2022-06-04] MEDS: PIPERACILLIN/TAZOBACTAM 3.375 GM in DEXTROSE 5% 50 ML IV SCH ×3 (12:50→23:52)
--- NOTE | 2022-06-04 12:50 | NUR ---
PT COMPLAINING OF PAIN IN ABDOMEN, PRN DILAUDID GIVEN.
--- NOTE | 2022-06-04 12:51 | NUR ---
06/04/22 RD INITIAL ASSESSMENT COMPLETED PLEASE REFER TO NUTRITION ASSESSMENT UNDER CARE ACTIVITY FOR ESTIMATED NUTRITIONAL NEEDS. 1. WHEN/IF MEDICALLY APPROPRIATE, RECOMMEND STARTING WITH CLEAR LIQUIDS AND GRADUALLY ADVANCING TO CCHO 60GM DIET TOLERATED 2. RD TO FOLLOW-UP 3-5 DAYS, MODERATE RISK ALICIA GOLDEN RD
[2022-06-04] MEDS: INSULIN LISPRO SLIDING SCALE 100 UNITS/ML VIAL SUBQ PRN ×2 (13:15→21:28)
--- NOTE | 2022-06-04 14:00 | NUR ---
PT VISUALLY ASSESSED, CURRENTLY SLEEPING.NO SIGNS OF DISTRESS NOTED.
--- NOTE | 2022-06-04 16:33 | NUR ---
DC PLANNING: THE PATIENT PRESENTED TO THE ER WITH C/O NAUSEA X 2 DAYS AND ABDOMINAL PAIN. H/O OVARIAN CA, DM AND HTN. CT ABD/PELVIS SHOWED INCREASE IN SIZE OF VENTRAL HERNIA AND POSSIBLE SBO. 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 CM SPOKE WITH THE PATIENTS DAUGHTER RAGHAV AT BEDSIDE AND CONFIRMED THE PATIENTS ADDRESS AND PHONE NUMBER. SHE LIVES IN A SINGLE STORY HOUSE WITH HER DAUGHTER, SON IN LAW AND GRANDSON. SHE IS NORMALLY ACTIVE AND INDEPENDENT IN ALL ACTIVITIES. SHE HAS DME OF A [employer] AND CANE AND HAS NOT HAD HOME HEALTH IN THE PAST. SHE SEES HER PMD DR CROWELL REGULARLY. DC PLAN IS FOR THE PATIENT TO RETURN HOME WITH FAMILY AND FOR HOME HEALTH. CM WILL FOLLOW. Addendum: 06/08/22 at 1306 by Elana Peters CM DC PLANNING: ORDER RECEIVED FOR HOME HEALTH AND DME, CM FAXED THE ORDER AND CLINICAL PACKET TO [employer] AND [employer] TO ARRANGE. CM WILL FOLLOW. Addendum: 06/08/22 at 1355 by Elana Peters CM DC PLANNING: [employer] HAS SET UP HOME HEALTH WITH [facility] ([phone]) AND HAS ORDERED THE FWW AND 3 IN 1 COMMODE WITH [employer]. CM WILL FOLLOW. Addendum: 06/08/22 at 1604 by Elana Peters CM DC PLANNING: CM SPOKE WITH [employer] [facility] DECLINED THE PATIENT, REFERRAL SENT TO [facility] ([phone]) [facility]. CM WILL FOLLOW. Addendum: 06/09/22 at 1059 by Elana Peters CM DC PLANNING: CM SPOKE WITH JACOB AT [email or web address] [facility], THEY WILL ACCEPT THE PATIENT ON SERVICE. AUTH FROM [employer] INSURANCE FOR [facility] IS [id number]. FWW AND 3 IN 1 COMMODE ARRANGED THROUGH [employer] BY [facility]. PHONE NUMBER FOR [email or web address] [facility] IS [phone]. CM WILL FOLLOW.
[2022-06-04] MEDS: ONDANSETRON 4 MG/2 ML VIAL IM/IVP PRN (16:49)
--- NOTE | 2022-06-04 16:53 | NUR ---
PT'S BLOOD GLUCOSE WAS 196, PT REFUSED ANY INSULIN COVERAGE BECAUSE THEY ARE STILL NPO. PT COMPLAINED OF PAIN 10. Addendum: 06/04/22 at 1700 by Alan Hilliard RN PT COMPLAINED OF PAIN 10/10 IN ABDOMEN,PRN DILAUDID AND ZOFRAN GIVEN.
--- NOTE | 2022-06-04 18:00 | NUR ---
PT VISUALLY ASSESSED, CURRENTLY SLEEPING.NO SIGNS OF DISTRESS NOTED.
--- NOTE | 2022-06-04 19:10 | NUR ---
ENDORSED PT TO NIGHTSILFT NURSE VELASQUEZ FOR CONTINUITY OF CARE. PT IN STABLE CONDITION.
--- NOTE | 2022-06-04 19:44 | NUR ---
RECEIVED ENDORSEMENT FROM DELMAR VIVAR FOR THIS PATIENT'S CARE. PATIENT WAS NOTED ASLEEP AND STABLE AT THE CHANGE OF SHIFT. DAUGHTER LEFT PATIENT'S BEDSIDE. NO NOTED COMPLAINTS OF PAIN/DISCOMFORT AT THIS TIME. PATIENT WAS ON ROOM AIR WITHOUT INCIDENT. NO NOTED S/SX OF HYPOGLYCEMIA/HYPERGLYCEMIA. INCISION NOTED MIDLINE OF ABDOMEN. NURSING WILL VERIFY ORDERS BEFORE CHANGING DRESSING. PATIENT UNDERSTOOD AND AGREED. SIDE RAILS UP X 2 FOR COMFORT AND SAFETY. PATIENT WAS ENCOURAGED TO USE CALL LIGHT FOR ALL NEEDS AND ASSISTANCE. CALL LIGHT WITHIN REACH. [email or web address]
[2022-06-04 20:00] VITALS: BP 119/69
--- NOTE | 2022-06-04 20:00 | NUR ---
Patient's Plan of Care was discussed and reviewed with ESTRELLITA: Vilma
--- NOTE | 2022-06-04 21:40 | NUR ---
PATIENT WAS GIVEN 6 UNITS OF INSULIN FOR BLOOD SUGAR. PATIENT REQUEST PAIN MANAGEMENT FOR A 9/10 PAIN SCALE. COVERING ROBBIN RN WAS NOTIFIED. PATIENT HAS NOTED NG-TUBE ON LOW SUCTION, ABDOMINAL DRESSING THAT IS CLEAN/DRY, AND SIDE RAILS UP X 3 FOR SAFETY. CALL LIGHT WITHIN REACH FOR ALL ASSISTANCE AND NEEDS. [email or web address]
--- NOTE | 2022-06-04 23:15 | NUR ---
PATIENT IN BED ASLEEP. SIDE RAILS UP X 3 FOR SAFETY. PATIENT WAS NOTED NO S/SX OF PAIN/DISCOMFORT. NO NOTED RESPIRATORY DISTRESS WITH NG-TUBE IN PLACE AND MASK OF OXYGEN. PATIENT WAS ABLE TO CHANGE POSITION WITHOUT INCIDENT. THAO REMAINS FROM SURGERY AND URINE DRAINAGE WAS NOTED YELLOW AND CLEAR. NURSING WILL FREQUENT THE ROOM FOR ANTICIPATED NEEDS. [email or web address]
--- NOTE | 2022-06-04 23:57 | NUR ---
IVPB ZOSYN HUNG AND STARTED RUNNING AT 100ML/HR. PATIENT IS SLEEPING, BREATHING IS NORMAL WITH SYMMETRICAL RISE AND FALL OF CHEST.
--- NOTE | 2022-06-05 01:25 | NUR ---
COVERING RN WAS INFORMED ABOUT PATIENT NEEDING A PAIN MANAGEMENT.PATIENT IN BED ASLEEP. NO NOTED RESPIRATORY DISTRESS CONTINUES ON 2 LITER OF OXYGEN VIA NASAL CANULA. NO NOTED S/SX OF HYPER/HYPOGLYCEMIA AT THIS TIME. SIDE RAILS UP X 2 FOR COMFORT AND SAFETY. CALL LIGHT WITHIN REACH. [email or web address]
[2022-06-05] MEDS: HYDROmorphone 1 MG/ML AMP IVP PRN ×6 (02:08→23:55)
[2022-06-05] MEDS: DEXT 5% /NACL 0.9% 1,000 ML IV SCH (02:12)
--- NOTE | 2022-06-05 03:11 | NUR ---
PATIENT IN BED ASLEEP. NO NOTED S/SX OF PAIN/DISCOMFORT. NO NOTED RESPIRATORY DISTRESS. NO NOTED SOILED DRESSING FROM SURGERY. SIDE RAILS UP X 4 FOR COMFORT AND SAFETY. CALL LIGHT WITHIN REACH. [email or web address]
[2022-06-05 04:00] VITALS: BP 119/70
--- NOTE | 2022-06-05 05:13 | NUR ---
PATIENT WAS NOTED IN BED AWAKE. SHE REMAINS IN BED WITH ABDOMINAL PAIN. EXPLAINED THAT SHE WILL BE DUE FOR NEXT DOSAGE A 6AM. PATIENT WAS MADE AWARE AND UNDERSTOOD. NG TUBE DRAINAGE WAS NOTED A DARK GREEN COLOR, THICK. THAO STILL IN PLACE AND NO ORDERS TO D/C AT THIS TIME. REMAINS ON NPO STATUS. GUNSTOCK REPAIRER RAILS UP X 4 FOR SAFETY AND COMFORT. NO NOTED RESPIRATORY DISTRESS. CALL LIGHT WITHIN REACH FOR ASSISTANCE AND NEEDS. [email or web address]
[2022-06-05 06:17] LABS: BASOPHILS % (AUTO) 0.2 % (0.0-2.0); HEMATOCRIT 36.1 % (36-48); HEMOGLOBIN 11.9 g/dL (12.0-16.0); LYMPHOCYTES # (AUTO) 1.3 K/uL (2.5-16.5); MEAN CORPUSCULAR HEMOGLOBIN 27 pg (27-31); MEAN CORPUSCULAR HGB CONC 33 g/dL (33-37); MEAN CORPUSCULAR VOLUME 81.5 fL (80-94); MONOCYTES # (AUTO) 1.2 K/uL (0.8-1.0); NEUTROPHILS # (AUTO) 8.4 K/uL (1.8-7.7); NEUTROPHILS % (AUTO) 76.8 % (42.2-75.2); PLATELET COUNT (AUTO) 183 K/uL (140-450); RED BLOOD CELL COUNT(AUTO) 4.43 MIL/uL (4.20-5.40); RED CELL DISTRIBUTION WIDTH 18.1 % (11.6-13.7); WHITE BLOOD COUNT (AUTO) 10.9 K/uL (4.8-10.8)
[2022-06-05 06:34] LABS: ANION GAP 10.9 (8-16); CARBON DIOXIDE 22.5 mmol/L (21-32); CHLORIDE 112 mmol/L (98-107); CREATININE 0.8 mg/dL (0.6-1.3); GLUCOSE 222 mg/dL (74-106); POTASSIUM 3.4 mmol/L (3.5-5.1); SODIUM SERUM 142 mmol/L (136-145); UREA NITROGEN, BLOOD 11 mg/dL (7-18)
[2022-06-05] MEDS: PIPERACILLIN/TAZOBACTAM 3.375 GM in DEXTROSE 5% 50 ML IV SCH ×3 (06:39→18:00)
--- NOTE | 2022-06-05 07:20 | NUR ---
RECEIVED ENDORSEMENT FROM SWIMMING POOL MAINTENANCE NURSE FOR CONTINUITY OF CARE. PATIENT AWAKE NO DISTRESS NOTED . ON NGT CONTINUEOUS LOW SUCTION NOTED WITH GREENISH FLUID. RESPIRATION EVEN AND NOT LABORED ON 2L /MIN VIA NASAL CANULA. IV SITE ON RIGHT HAND WITH IV OF NS AT 120 CC/HOUR. ALL SAFETY MEASURE IN PLACE.
[2022-06-05] MEDS: BLOOD GLUCOSE MONITORING 1 DEV DEV FS SCH ×4 (07:40→21:28)
[2022-06-05] MEDS: INSULIN LISPRO SLIDING SCALE 100 UNITS/ML VIAL SUBQ PRN ×4 (07:40→21:34)
--- NOTE | 2022-06-05 07:43 | NUR ---
ENDORSED PATIENT TO CHRISTI HARO, PATIENT WAS STABLE DURING SHIFT CHANGE. [email or web address]
--- NOTE | 2022-06-05 08:00 | NUR ---
REVIEWED AND DISCUSSED PLAN OF CARE WITH ESTRELLITA BARRAZA. PT IN STABLE CONDITION.
--- NOTE | 2022-06-05 09:40 | NUR ---
DR. MARTINEZ AT BED SIDE.
--- NOTE | 2022-06-05 09:52 | NUR ---
DR. VANCE AT BED SIDE CHECKED PATIENT AND INSTRUCTED PATIENT TO SIT ON CHAIR TODAY.
[2022-06-05] MEDS ORDERED: KCL 20 MEQ/WATER INJ PREMIX 100 ML IV ONE (09:55)
--- NOTE | 2022-06-05 09:55 | NUR ---
[facility] NO GIVEN DUE TO NEW ORDER FOR IV HYDRATION WITH POTASSIUM
[2022-06-05] MEDS: PANTOPRAZOLE 40 MG INJ VIAL IVP SCH (09:59)
[2022-06-05] MEDS: POTASSIUM CHL 20 MEQ/D5-1/2NS 1,000 ML IV SCH ×2 (10:07→21:27)
--- NOTE | 2022-06-05 12:01 | NUR ---
BLOOD SUGAR CHECKED AND ENCOURAGE PATIENT TO SIT ON CHAIR PER DR. VANCE ORDER FOR HER SIT ON CHAIR. ASSISTED PATIENT AND SECURE NGT.
--- NOTE | 2022-06-05 14:22 | NUR ---
COMPLAIN OF PAIN MEDICATED ORDER.
[2022-06-05 16:00] VITALS: BP 138/61
--- NOTE | 2022-06-05 18:41 | NUR ---
PT COMPLAINED OF PAIN 07/07. MEDICATED PRN DILAUDID.
--- NOTE | 2022-06-05 19:20 | NUR ---
RECEIVED REPORT FROM NURSE CHRISTI HARO FOR CONTINUITY OF CARE.PT IS STABLE IN BED A&OX4 VENEZUELAN SPEAKER. STATUS POST SBO SURGERY W/HERNIA WITHOUT MESH ON 06/04/22. ABDOMINAL INCISION DRESSING D&I. DENIES PAIN AT THIS TIME.ON RM AIR . NG-TUBE TO LOW INTERMITTENT SUCTION DRAINING GREEN BILIOUS GASTRIC FLUID.RR EVEN AND UNLABORED. ABDOMEN IS ROUND DISTENDED ACTIVE BOWEL SOUNDS BUT ISN'T PASSING GAS YET. REMAINS NPO.PT CAN STAND AND TRANSFER TO CHAIR WITH STANDBY ASSIST. THAO CATHETER DRAINING CLEAR YELLOW/LILO URINE.ALL SAFETY MEASURES IN PLACE. BED IN LOW AND LOCKED POSITION. CALL 8T WITHIN REACH. WILL CONTINUE TO MONITOR.
--- NOTE | 2022-06-05 19:20 | NUR ---
GAVE REPORT TO CAR SALES CONSULTANT NURSE FOR CONTINUITY OF CARE.
--- NOTE | 2022-06-05 23:00 | NUR ---
PT C/O ABDOMINAL PAIN 06/06. RECEIVED DILAUDID 1MG IVP. IV ABX ZOSYN INFUSED INTO R HAND 24G IV. RR EVEN AND UNLABORED WITH EQUAL CHEST RISE. ALL SAFETY MEASURES IN PLACE. BED IN LOW AND LOCKED POSITION. CALL LIGHT WITHIN REACH. WILL CONTINUE TO MONITOR.
[2022-06-06] MEDS: PIPERACILLIN/TAZOBACTAM 3.375 GM in DEXTROSE 5% 50 ML IV SCH ×5 (00:10→23:02)
[2022-06-06] MEDS: POTASSIUM CHL 20 MEQ/D5-1/2NS 1,000 ML IV SCH ×3 (02:25→19:05)
[2022-06-06 04:00] VITALS: BP 147/79
[2022-06-06] MEDS: HYDROmorphone 1 MG/ML AMP IVP PRN ×4 (06:25→23:02)
--- NOTE | 2022-06-06 06:35 | NUR ---
LEANN COOK. [place]=[id number] RECEIVED 4 UNITS HUMALOG INSULIN COVERAGE. TRANSFERRED FROM BED TO RECLINER CHAIR WITH 2 STANDBY ASSIST. FOUND NG-TUBE HAD COME OUT. THREE PEOPLE TRIED TO INSERT NEW NG-TUBE WITHOUT SUCCESS.REINSERTED BY CHARGE NURSE MARCELA MORELOS RN [facility]. CXR ORDERED TO CONFIRM NG-TUBE PLACEMENT.
[2022-06-06] MEDS: BLOOD GLUCOSE MONITORING 1 DEV DEV FS SCH ×4 (06:55→20:26)
[2022-06-06] MEDS: INSULIN LISPRO SLIDING SCALE 100 UNITS/ML VIAL SUBQ PRN ×4 (06:58→20:28)
[2022-06-06 07:12] LABS: BASOPHILS % (AUTO) 0.2 % (0.0-2.0); EOSINOPHILS % (AUTO) 0.2 % (0.0-4.0); HEMATOCRIT 31.5 % (36-48); HEMOGLOBIN 10.4 g/dL (12.0-16.0); LYMPHOCYTES # (AUTO) 1.5 K/uL (2.5-16.5); MEAN CORPUSCULAR HEMOGLOBIN 27 pg (27-31); MEAN CORPUSCULAR HGB CONC 33 g/dL (33-37); MEAN CORPUSCULAR VOLUME 80.2 fL (80-94); NEUTROPHILS # (AUTO) 10.3 K/uL (1.8-7.7); NEUTROPHILS % (AUTO) 79.6 % (42.2-75.2); PLATELET COUNT (AUTO) 162 K/uL (140-450); RED BLOOD CELL COUNT(AUTO) 3.93 MIL/uL (4.20-5.40); RED CELL DISTRIBUTION WIDTH 18.3 % (11.6-13.7)
[2022-06-06 07:26] LABS: ANION GAP 10.6 (8-16); CARBON DIOXIDE 23.8 mmol/L (21-32); CHLORIDE 111 mmol/L (98-107); CREATININE 0.6 mg/dL (0.6-1.3); GLUCOSE 196 mg/dL (74-106); POTASSIUM 3.4 mmol/L (3.5-5.1); SODIUM SERUM 142 mmol/L (136-145); UREA NITROGEN, BLOOD 11 mg/dL (7-18)
--- NOTE | 2022-06-06 07:40 | NUR ---
ENDORSED REPORT TO AM GHAZALA SAAB FOR CONTINUITY OF CARE. PT IS STABLE. GEAR CODING MACHINE OPERATOR AT BEDSIDE GETTING XRAY TO DETERMINE NG-TUBE PLACEMENT. NOTICED IV WOULD NOT FLUSH. DAVIS VIVAR ATTEMPTING TO INSERT NEW IV. ALL NEEDS MET THROUGHOUT SHIFT.
[2022-06-06] MEDS: PANTOPRAZOLE 40 MG INJ VIAL IVP SCH (09:13)
[2022-06-06] MEDS ORDERED: MAG SULF 2000 MG/WATER PREMIX 50 ML IV SCH (12:00)
--- NOTE | 2022-06-06 12:00 | NUR ---
said to take out Devante. Cleaned wound dressing with betadine and dressing applied per verbal order Addendum: 06/06/22 at 1527 by Agency Kevon VIVAR RN MD Blank
[2022-06-06 14:10] VITALS: BP 165/88
--- NOTE | 2022-06-06 17:25 | NUR ---
Patient still not passing gas. Ambulated to the bathroom to void.
--- NOTE | 2022-06-06 18:07 | NUR ---
Patient's IV infiltrated. Capo charge coordinator place new IV RAC 22g.
[2022-06-06 20:00] VITALS: BP 132/60
[2022-06-06] MEDS: HYDROcodone/APAP 7.5/325 MG 1 TAB PO PRN (20:19)
[2022-06-07] MEDS: POTASSIUM CHL 20 MEQ/D5-1/2NS 1,000 ML IV SCH ×3 (02:45→21:00)
[2022-06-07 04:00] VITALS: BP 142/70
[2022-06-07] MEDS: HYDROmorphone 1 MG/ML AMP IVP PRN ×3 (04:13→19:06)
[2022-06-07] MEDS: PIPERACILLIN/TAZOBACTAM 3.375 GM in DEXTROSE 5% 50 ML IV SCH ×3 (05:25→17:38)
[2022-06-07 05:36] LABS: BASOPHILS % (AUTO) 0.3 % (0.0-2.0); EOSINOPHILS # (AUTO) 0.3 K/uL (0-0.4); EOSINOPHILS % (AUTO) 2.6 % (0.0-4.0); HEMATOCRIT 29.6 % (36-48); HEMOGLOBIN 9.8 g/dL (12.0-16.0); LYMPHOCYTES # (AUTO) 1.6 K/uL (2.5-16.5); LYMPHOCYTES % (AUTO) 15.2 % (20.5-51.1); MEAN CORPUSCULAR HEMOGLOBIN 27 pg (27-31); MEAN CORPUSCULAR HGB CONC 33 g/dL (33-37); MEAN CORPUSCULAR VOLUME 81.4 fL (80-94); MONOCYTES # (AUTO) 0.7 K/uL (0.8-1.0); MONOCYTES % (AUTO) 6.7 % (1.7-9.3); NEUTROPHILS # (AUTO) 8.1 K/uL (1.8-7.7); NEUTROPHILS % (AUTO) 75.2 % (42.2-75.2); PLATELET COUNT (AUTO) 147 K/uL (140-450); RED BLOOD CELL COUNT(AUTO) 3.64 MIL/uL (4.20-5.40); RED CELL DISTRIBUTION WIDTH 17.9 % (11.6-13.7); WHITE BLOOD COUNT (AUTO) 10.7 K/uL (4.8-10.8)
[2022-06-07 05:43] LABS: ANION GAP 9.6 (8-16); CARBON DIOXIDE 25.7 mmol/L (21-32); CHLORIDE 109 mmol/L (98-107); CREATININE 0.6 mg/dL (0.6-1.3); GLUCOSE 212 mg/dL (74-106); POTASSIUM 3.3 mmol/L (3.5-5.1); SODIUM SERUM 141 mmol/L (136-145); UREA NITROGEN, BLOOD 8 mg/dL (7-18)
[2022-06-07] MEDS: BLOOD GLUCOSE MONITORING 1 DEV DEV FS SCH ×4 (06:31→21:00)
[2022-06-07] MEDS: INSULIN LISPRO SLIDING SCALE 100 UNITS/ML VIAL SUBQ PRN ×4 (06:33→22:39)
--- NOTE | 2022-06-07 08:00 | NUR ---
GOT REPORT FROM THE NIGHT NURSE , PT IS SLEEPING.BATHING IS NOT LABORED. [email or web address]
[2022-06-07] MEDS: PANTOPRAZOLE 40 MG INJ VIAL IVP SCH (09:52)
[2022-06-07 13:37] VITALS: BP 142/70
[2022-06-07] MEDS: POTASSIUM CHLORIDE 40 MEQ, LIDOCAINE MPF 1% 25 MG in NACL 0.9% 250 ML IV PRN (15:43)
--- NOTE | 2022-06-07 16:58 | NUR ---
P.T. NOTES P.T. EVAL COMPLETED; REFER TO EVAL FOR DETAILS.
--- NOTE | 2022-06-07 17:00 | NUR ---
DISCHARGE PLANNING PATIENT IS A 71-YEAR-OLD FEMALE ADMITTED IN THE [facility]/ED ON 06/03/2022 DUE COMPLAINT OF WORSENING ABDOMINAL PAIN. PATIENT REPORTED THAT SHE HAS AN ABDOMINAL HERNIA IN WHICH SHE HAS SEVERAL TIMES BEEN HOSPITALIZED DUE TO CONSTIPATION DUE TO HER HERNIA. PATIENT ALSO HAS HX OF HYPERTENSION AND DIABETES. ALKA MET WITH PATIENT AT BEDSIDE TO DISCUSS AND GATHER HER COLLATERAL INFORMATION. PATIENT REPORTED LIVING AT HOME WITH HER DAUTHER AND SON IN LAW. PER PATIENT HER DAUGHTER RAGHAV ROSS IS HER EMERGENCY CONTACT AND HER MEDICAL DESICION MAKER. PATIENT REPORTED HAVING GOOD FAMILY SUPPORT AND REPORTED THAT HER DAUGHTER RAGHAV TAKES CARE OF HER WHEN SHE NEEDS HELP. PATIENT REPORTED THAT SHE HAS NO ADVANCE DIRECTIVES DONE AND PATIENT WAS INTERESTED ON THE A.D. INF. PACKET PROVIDED BY ALKA. PATIENT REPORTED NOT HAVING ANY ISSUES GETTING OR TAKING HER MEDICATIONS, STATED THAT HER PHARMACY MAILS HER MEDICATION TO HER HOME. [facility] IN [place]. PATIENT ALSO REPORTED HAVING A WALKER, CANE AND A COMMODE CHAIR AT HOME HER DME. PER PATIENT SHE HAS MD JAMEY CROWELL HER PCP. IN [facility] AND GOES TO SEE HIM WHEN SHE NEEDS TO SEE HER MD. LAST VISIT WAS ABOUT A MONTH AGO VIA TELEPHONE. ALKA INFORMED PATIENT OF THE IMPORTANCE OF FOLLOWING UP WITH AN APPOINMENT WITH HER PCP AFTER SHE IS DISCHARGE WITH IN 5-7 DAYS AND WILL BE SCHEDULING HER FOLLOW UP APPOINMENT. PATIENT AGREED AND THANKED ALKA AND AGREED TO ATTEND. PATIENT REPORTED THAT HER DAUGHTER OR HER SON IN LAW WILL BE PICKING HER UP AND TRANSPORT HER BACK HOME AFTER HER DISCHARGE FROM [facility]. SW THANK HER FOR HER INF. AND LEFT HER ROOM. SW WILL FOLLOW UP NEEDED.
[2022-06-07] MEDS: ONDANSETRON 4 MG/2 ML VIAL IM/IVP PRN (19:11)
--- NOTE | 2022-06-07 19:14 | NUR ---
just given pt med for nausea and pain as ordered, pt ambulated to bathroom, no bm only urinated.[email or web address]
--- NOTE | 2022-06-07 19:15 | NUR ---
RECEIVED REPORT FROM KRYSTIAN VIVAR, PATIENT WAS STABLE AT CHANGE OF SHIFT. PATIENT WAS RECEIVED IN BED ALERT AND ORIENTED X 4 WITH HOB ELEVATED AT 45 DEGREES TO VISIT WITH FAMILY AT BEDSIDE. PATIENT HAS SIDE RAILS UP X 3. BED AT THE LOWEST LEVEL FOR SAFETY. CALL LIGHT WITHIN REACH FOR ASSISTANCE AND NEEDS. AT THIS TIME PATIENT HAS NO NOTED PAIN/DISCOMFORT. PATIENT HAS NO NOTED RESPIRATORY COMPLAINTS OR NEEDS. PATIENT IS ON 2 LITER VIA NASAL CANNULA. [email or web address]
[2022-06-07 20:00] VITALS: BP 126/64
--- NOTE | 2022-06-07 21:12 | NUR ---
PATIENT ON HER PHONE IN HER BED. NO S/S OF PAIN/DISCOMFORT. NO NOTE S/SX O RESPIRATORY DISTRESS. SIDE RAIL UP X 2. BED IN THE LOWEST POSITION. CALL LIGHT WITHIN REACH PATIENT IS AWARE AND UNDERSTAND TO PRESS THE BUTTONS FOR ASSISTANCE. [email or web address]
--- NOTE | 2022-06-07 23:14 | NUR ---
PATIENT IN BED ASLEEP. PATIENT HAS SIDE RAILS UP X 2. BED AT THE LOWEST LEVEL FOR SAFETY. CALL LIGHT WITHIN REACH FOR ASSISTANCE AND NEEDS. AT THIS TIME PATIENT HAS NO NOTED PAIN/DISCOMFORT. PATIENT HAS NO NOTED RESPIRATORY COMPLAINTS OR NEEDS. PATIENT IS ON ROOM AIR. [email or web address]
[2022-06-08] MEDS: ONDANSETRON 4 MG/2 ML VIAL IM/IVP PRN (00:08)
--- NOTE | 2022-06-08 00:08 | NUR ---
PT COMPLAINTS OF NAUSEA, MEDICATION FOR NAUSEA ADMINISTERED ORDERED.
[2022-06-08] MEDS: HYDROmorphone 1 MG/ML AMP IVP PRN ×5 (00:12→22:27)
--- NOTE | 2022-06-08 00:12 | NUR ---
PT COMPLAINTS OF SEVERE PAIN 8/10 ON ABDOMINAL AREA, PAIN MEDICATION ADMINISTERED ORDERED.
[2022-06-08] MEDS: PIPERACILLIN/TAZOBACTAM 3.375 GM in DEXTROSE 5% 50 ML IV SCH ×5 (00:19→23:26)
--- NOTE | 2022-06-08 01:05 | NUR ---
PATIENT IN BED ASLEEP. NASAL CANNULA ON AT 2 LITERS. SIDE RAILS U X2. CALL LIGHT WITHIN REACH. [email or web address]
--- NOTE | 2022-06-08 03:33 | NUR ---
DURING ROUNDS NURSING NOTED THE PATIENT IN BED ASLEEP. PAIN MEDICATION WAS GIVEN TO SATISFY PATIENT HIGH PAIN LEVEL. NO SIDE EFFECTS NOTED FROM THE MEDICATION. SIDE RAILS UP X 2. CALL LIGHT IN REACH FOR ASSISTANCE. NO RESPIRATORY DISTRESS FROM PAIN MEDICATION. [email or web address]
[2022-06-08 04:00] VITALS: BP 133/65
[2022-06-08] MEDS: POTASSIUM CHL 20 MEQ/D5-1/2NS 1,000 ML IV SCH (04:25)
[2022-06-08 05:54] LABS: BASOPHILS % (AUTO) 0.4 % (0.0-2.0); EOSINOPHILS # (AUTO) 0.4 K/uL (0-0.4); EOSINOPHILS % (AUTO) 4.1 % (0.0-4.0); HEMATOCRIT 27.7 % (36-48); HEMOGLOBIN 9.2 g/dL (12.0-16.0); LYMPHOCYTES % (AUTO) 19.9 % (20.5-51.1); MEAN CORPUSCULAR HEMOGLOBIN 27 pg (27-31); MEAN CORPUSCULAR HGB CONC 33 g/dL (33-37); MEAN CORPUSCULAR VOLUME 81.5 fL (80-94); MONOCYTES # (AUTO) 0.8 K/uL (0.8-1.0); MONOCYTES % (AUTO) 7.9 % (1.7-9.3); NEUTROPHILS # (AUTO) 6.9 K/uL (1.8-7.7); NEUTROPHILS % (AUTO) 67.7 % (42.2-75.2); PLATELET COUNT (AUTO) 179 K/uL (140-450); RED BLOOD CELL COUNT(AUTO) 3.39 MIL/uL (4.20-5.40); RED CELL DISTRIBUTION WIDTH 17.6 % (11.6-13.7); WHITE BLOOD COUNT (AUTO) 10.2 K/uL (4.8-10.8)
[2022-06-08 06:08] LABS: CARBON DIOXIDE 27.7 mmol/L (21-32); CHLORIDE 108 mmol/L (98-107); CREATININE 0.5 mg/dL (0.6-1.3); GLUCOSE 184 mg/dL (74-106); POTASSIUM 3.7 mmol/L (3.5-5.1); SODIUM SERUM 142 mmol/L (136-145); UREA NITROGEN, BLOOD 5 mg/dL (7-18)
[2022-06-08] MEDS: BLOOD GLUCOSE MONITORING 1 DEV DEV FS SCH ×4 (06:35→19:05)
--- NOTE | 2022-06-08 06:46 | NUR ---
DURING ROUNDS NURSING NOTED THE PATIENT IN BED ASLEEP. COVERING RN WAS ABLE TO GIVE IV ANTIBIOTICS. NO SIDE EFFECTS NOTED FROM THE MEDICATION. SIDE RAILS UP X 2. CALL LIGHT IN REACH FOR ASSISTANCE. [email or web address]
--- NOTE | 2022-06-08 07:33 | NUR ---
ENDORSED KRYSTIAN VIAVR, PATIENT WAS STABLE AT THE TIME OF SHIFT CHANGE. [email or web address]
--- NOTE | 2022-06-08 07:34 | NUR ---
GOT REPORT FROM THE NIGHT NURSE, PT SLEEPING ,LOOKS COMFORTABLE.[id number]
[2022-06-08] MEDS: INSULIN LISPRO SLIDING SCALE 100 UNITS/ML VIAL SUBQ PRN ×2 (07:40→16:45)
[2022-06-08] MEDS: PANTOPRAZOLE 40 MG INJ VIAL IVP SCH (09:14)
[2022-06-08] MEDS ORDERED: bisacodyL 5 MG TABEC PO SCH (09:45)
[2022-06-08 16:28] VITALS: BP 133/65
[2022-06-08 17:12] VITALS: BP 156/73
--- NOTE | 2022-06-08 19:30 | NUR ---
RECEIVED ENDORSEMENT FROM KRYSTIAN VIVAR, PATIENT WAS STABLE AT THE CHANGE OF SHIFT. PATIENT IN BED RESTING BUT EASY TO AROUSE. NO COMPLAINTS OF PAIN/DISCOMFORT AT THIS TIME. PATIENT CONTINUES OF OXYGENT X 2 LITER VIA NASAL CANNULA. BREATHING UNLABORED. NURSING OBSERVE PATIENT GETTING UP FROM BED TO BATHROOM WITH MINIMAL ASSISTANCE BECAUSE OF SURGICAL SITE INCISION. PATIENT WOULD HOLD HER STOMACH AND MOVE WITH STEADY GATE. PATIENT HAS SIDE RAILS UP X 2 FOR SAFETY AND ADJUSTMENT. BED AT THE LOWEST LEVEL FOR SAFETY. CALL LIGHT WITHIN REACH FOR ASSISTANCE AND NEEDS. [email or web address]
--- NOTE | 2022-06-08 20:00 | NUR ---
Patient's Plan of Care was discussed and reviewed with DIGITAL ARCHIVIST: CORA SU
--- NOTE | 2022-06-08 22:27 | NUR ---
PATIENT COMPLAINED OF SEVERE PAIN, MEDICATED. BP- 144/74 P-83
--- NOTE | 2022-06-08 23:25 | NUR ---
PATIENT NOTED IN BED WITH SIDE RAILS UP X 2 ASLEEP. NO NOTE S/S OF PAIN OR DISCOMFORT. BREATHING EVENLY WITHOUT INCIDENT. CALL LIGHT WITHIN REACH. NURSING WILL CONTINUE TO MONITOR FOR ANTICIPATED NEEDS. [email or web address]
--- NOTE | 2022-06-09 01:32 | NUR ---
PATIENT REMAINS ASLEEP AT THIS TIME. SIDE RAILS UP X 2. CALL LIGHT WITHIN REACH FOR ASSISTANCE. CHEST RISING AND FALLING EVENLY. NO NOTED FACIAL GRIMACING TO INDICATE PAIN. PATIENT REMAINS CLEAN AND DRY AT THIS TIME. NURSING WILL MAKE ROUNDS TO ANTICIPATE NEEDS OR ASSISTANCE. [email or web address]
[2022-06-09 04:00] VITALS: BP 152/74
--- NOTE | 2022-06-09 05:37 | NUR ---
PATIENT RECEIVED PAIN MANAGEMENT MEDICATION FOR ABDOMINAL PAIN FROM SURGERY. NURSING WILL MONITOR FOR PAIN RELIEF IN ONE HOUR. SIDE RAILS UP X 2. CALL LIGHT WITHIN REACH FOR ASSISTANCE. NURSING WILL MAKE ROUNDS TO ANTICIPATE NEEDS OR ASSISTANCE. [email or web address]
[2022-06-09] MEDS: HYDROmorphone 1 MG/ML AMP IVP PRN ×3 (05:38→16:01)
[2022-06-09] MEDS: PIPERACILLIN/TAZOBACTAM 3.375 GM in DEXTROSE 5% 50 ML IV SCH (05:42)
[2022-06-09 05:46] LABS: BASOPHILS % (AUTO) 0.5 % (0.0-2.0); EOSINOPHILS # (AUTO) 0.4 K/uL (0-0.4); EOSINOPHILS % (AUTO) 4.7 % (0.0-4.0); HEMATOCRIT 27.9 % (36-48); HEMOGLOBIN 9.4 g/dL (12.0-16.0); LYMPHOCYTES # (AUTO) 2.3 K/uL (2.5-16.5); LYMPHOCYTES % (AUTO) 26.4 % (20.5-51.1); MEAN CORPUSCULAR HEMOGLOBIN 27 pg (27-31); MEAN CORPUSCULAR HGB CONC 34 g/dL (33-37); MONOCYTES # (AUTO) 0.8 K/uL (0.8-1.0); MONOCYTES % (AUTO) 9.3 % (1.7-9.3); NEUTROPHILS # (AUTO) 5.1 K/uL (1.8-7.7); NEUTROPHILS % (AUTO) 59.1 % (42.2-75.2); PLATELET COUNT (AUTO) 200 K/uL (140-450); RED BLOOD CELL COUNT(AUTO) 3.44 MIL/uL (4.20-5.40); RED CELL DISTRIBUTION WIDTH 17.2 % (11.6-13.7); WHITE BLOOD COUNT (AUTO) 8.6 K/uL (4.8-10.8)
[2022-06-09 06:20] LABS: ANION GAP 8.6 (8-16); CARBON DIOXIDE 29.5 mmol/L (21-32); CHLORIDE 105 mmol/L (98-107); CREATININE 0.5 mg/dL (0.6-1.3); GLUCOSE 181 mg/dL (74-106); POTASSIUM 3.1 mmol/L (3.5-5.1); SODIUM SERUM 140 mmol/L (136-145); UREA NITROGEN, BLOOD 2 mg/dL (7-18)
[2022-06-09] MEDS ORDERED: SODIUM PHOSPHATE 118 ML ENEM RC SCH ×2 (07:05→07:27)
--- NOTE | 2022-06-09 07:10 | NUR ---
PATIENT WAS ENDORSED TO KRYSTIAN VIVAR, PATIENT WAS STABLE AT CHANGE OF SHIFT. NEW ORDERS FROM DOCTOR SANTANA ARE IN PLACE FOR PATIENT TO POSSIBLE DISCHARGE. [email or web address]
--- NOTE | 2022-06-09 07:30 | NUR ---
RECEIVED REPORT FROM KAMILLE. PT A/O X4. BANGLADESHI SPEAKING, LITTLE CITIZEN OF [place]. PT DENIES PAIN, N/V. NO SOB NOTED. ON 2L NC. RR EVEN & UNLABORED. RAC #22 SL. NEEDS ALL MET AT THIS TIME. SAFETY MEASURES IN PLACE.
[2022-06-09] MEDS: BLOOD GLUCOSE MONITORING 1 DEV DEV FS SCH ×3 (07:37→16:16)
[2022-06-09] MEDS: INSULIN LISPRO SLIDING SCALE 100 UNITS/ML VIAL SUBQ PRN ×3 (07:38→16:16)
--- NOTE | 2022-06-09 08:00 | NUR ---
PT WITH MID ABDOMINAL LATERAL REAL. PT IS S/P LAPAROTOMY. SURGICAL SITE WITH NO S/S INFECTION.
[2022-06-09] MEDS: PANTOPRAZOLE 40 MG INJ VIAL IVP SCH (08:21)
--- NOTE | 2022-06-09 08:30 | NUR ---
FLEET ENEMA GIVEN. ASSISTED PT TO BEDSIDE COMMODE. PT WITH BROWN WATERY BM. SELF HYGIENIC CARE GIVEN. ASSISTED PT BACK IN BED. PT ON 2L NC. DENIES PAIN AT THIS TIME. SAFETY MEASURES IN PLACE.
[2022-06-09] MEDS ORDERED: SULF-954 PO (10:41)
--- NOTE | 2022-06-09 11:30 | NUR ---
PT PULLED OUT IV ON RAC #20. NO ACTIVE BLEEDING. NEW IV RESTART ON L AC #22, X1 ATTEMPT. PT TOLERATED WELL. PT C/O GENERALIZED PAIN THROUGHOUT BODY. SEE EMAR FOR PRN PAIN MEDICATION ADMINISTRATION. NEEDS ALL MET AT THIS TIME. SAFETY MEASURES IN PLACE.
[2022-06-09] MEDS: POTASSIUM CHLORIDE 40 MEQ, LIDOCAINE MPF 1% 25 MG in NACL 0.9% 250 ML IV PRN (11:47)
--- NOTE | 2022-06-09 11:47 | NUR ---
SKY CARRILLO IVPB GIVEN
--- NOTE | 2022-06-09 17:10 | NUR ---
PT DISCHARGE INSTRUCTIONS GIVEN TO PT'S SON IN LAW (MOODY DANIELLE). PT AND PT'S SON IN LAW VERBALIZED UNDERSTANDING. PT IV DISCONTINUED, CATHETER INTACT, NO ACTIVE BLEEDING. PT AMBULATED TO AND FROM RESTROOM AND WHEELED OUT VIA WHEELCHAIR.
== END 2022-06-09 17:10 | disposition home or self-care (01) | DRG 854 ==
LOC: MED 19:05 → MMU 06-03 00:14 → MTU 06-03 07:53
PROVIDERS: ADMIT Family Medicine; ATTEND Family Medicine
PROC: 0WQF0ZZ Repair Abdominal Wall, Open Approach (ICD-10-PCS; 2022-06-04)
PROC: 0DN80ZZ Release Small Intestine, Open Approach (ICD-10-PCS; 2022-06-04)
PROC: 0DNU0ZZ Release Omentum, Open Approach (ICD-10-PCS; 2022-06-04)
PROC: 0DB80ZZ Excision of Small Intestine, Open Approach (ICD-10-PCS; principal; 2022-06-04 05:00)
DX: A41.9 Sepsis, unspecified organism (principal); K43.0 Incisional hernia with obstruction, without gangrene; K56.609 Unspecified intestinal obstruction, unspecified as to partial versus complete obstruction; N39.0 Urinary tract infection, site not specified; I10 Essential (primary) hypertension; E11.9 Type 2 diabetes mellitus without complications; E86.0 Dehydration; E87.6 Hypokalemia; E83.42 Hypomagnesemia; Z20.822 Contact with and (suspected) exposure to COVID-19; D64.9 Anemia, unspecified; Z90.710 Acquired absence of both cervix and uterus; Z85.43 Personal history of malignant neoplasm of ovary; Z79.899 Other long term (current) drug therapy; Z90.49 Acquired absence of other specified parts of digestive tract; K52.9 Noninfective gastroenteritis and colitis, unspecified
CPT/HCPCS: 36415; 71045; 71046; 74018; 74250; 80048; 80053; 81001; 82150; 82948; 83036; 83605; 83690; 83735; 83880; 84100; 84436; 84439; 84443; 84479; 85025; 85610; 85730; 86886; 86900; 86901; 87040; 87086; 88307; 96361; 96374; 96375; 97110; 97116; 97163-GP; 97530; 99285; C9113; J0330; J0360; J1170; J1815; J2001; J2270; J2405; J2543; J2704; J2710; J3010; J3475; J3480; J3490; J7030; J7060; Q0092

== ENCOUNTER 2023-01-15 10:19 | Inpatient (IN) | payer OTHER ==
[~2023-01-15] VITALS: Ht 154.9 cm; Wt 84.4 kg
[~2023-01-15 10:19] MED LIST changes: +INSU100S22 SUBQ; -MONT10TA35 PO
[2023-01-15 10:25] VITALS: BP 156/78
--- NOTE | 2023-01-15 10:32 | NUR ---
pt ambulated to bed 09
[2023-01-15] MEDS ORDERED: ONDANSETRON 4 MG/2 ML VIAL IVP ONE (10:45)
[2023-01-15] MEDS ORDERED: NACL 0.9% 1,000 ML IV ONE (10:45)
[2023-01-15] MEDS ORDERED: MORPHINE SULFATE 4 MG/ML SYR IVP ONE (10:45)
--- NOTE | 2023-01-15 11:04 | NUR ---
Aox4. pt able to ambulate to room. no acd noted. already seen by md, medications given as ordered. pt tolerated medications well. 02 sat 94-95% ra, nsr on cm, sr up times 2
[2023-01-15 11:20] LABS: BASOPHILS % (AUTO) 0.2 % (0.0-2.0); EOSINOPHILS % (AUTO) 0.1 % (0.0-4.0); HEMATOCRIT 42.5 % (36-48); HEMOGLOBIN 13.9 g/dL (12.0-16.0); LYMPHOCYTES # (AUTO) 1.9 K/uL (2.5-16.5); LYMPHOCYTES % (AUTO) 11.8 % (20.5-51.1); MEAN CORPUSCULAR HEMOGLOBIN 27 pg (27-31); MEAN CORPUSCULAR HGB CONC 33 g/dL (33-37); MEAN CORPUSCULAR VOLUME 82.5 fL (80-94); MONOCYTES # (AUTO) 0.8 K/uL (0.8-1.0); MONOCYTES % (AUTO) 5.1 % (1.7-9.3); NEUTROPHILS # (AUTO) 13.5 K/uL (1.8-7.7); NEUTROPHILS % (AUTO) 82.8 % (42.2-75.2); PLATELET COUNT (AUTO) 259 K/uL (140-450); RED BLOOD CELL COUNT(AUTO) 5.15 MIL/uL (4.20-5.40); RED CELL DISTRIBUTION WIDTH 16.9 % (11.6-13.7); WHITE BLOOD COUNT (AUTO) 16.3 K/uL (4.8-10.8)
[2023-01-15 11:40] LABS: CARBON DIOXIDE 27.3 mmol/L (21-32); CHLORIDE 102 mmol/L (98-107); CREATININE 0.9 mg/dL (0.6-1.3); GLUCOSE 248 mg/dL (74-106); POTASSIUM 4.3 mmol/L (3.5-5.1); SODIUM SERUM 140 mmol/L (136-145); UREA NITROGEN, BLOOD 21 mg/dL (7-18)
[2023-01-15 11:45] LABS: ASPARTATE AMINOTRANSFERASE 21 U/L (15-37); LIPASE 55 U/L (73-393); TOTAL BILIRUBIN 0.4 mg/dL (0.0-1.0)
--- NOTE | 2023-01-15 11:58 | NUR ---
pt sleeping, nad, taken to ct by tech
--- NOTE | 2023-01-15 12:27 | NUR ---
brought back from ct, nad, easily arousable to voice, abd pain 2/10, no n/v, sr on cm, o2 sat 98% ra, sr up times 2.
[2023-01-15] MEDS ORDERED: MORPHINE SULFATE 2 MG/ML SYR IVP STA (13:56)
[2023-01-15] MEDS ORDERED: ZOLPIDEM 5 MG TAB PO PRN (14:50)
[2023-01-15] MEDS ORDERED: ONDANSETRON 4 MG/2 ML VIAL IM/IVP PRN (14:50)
[2023-01-15] MEDS ORDERED: ACETAMINOPHEN 325 MG TAB PO PRN (14:50)
[2023-01-15] MEDS ORDERED: POTASSIUM CHLORIDE 10 MEQ TABER PO PRN (14:50)
[2023-01-15] MEDS ORDERED: guaiFENesin DM 200/20 MG-10 ML 10 ML UDC PO PRN (14:50)
[2023-01-15] MEDS ORDERED: DOCUSATE SODIUM 100 MG GELCAP PO PRN (14:50)
[2023-01-15 15:33] LABS: PROTHROMBIN TIME 9.9 secs (10.8-13.4)
[2023-01-15] MEDS: DEXT 5% /NACL 0.9% 1,000 ML IV SCH (15:35)
[2023-01-15] MEDS: LEVOFLOXACIN 750 MG/D5W PREMIX 150 ML IV SCH (16:04)
[2023-01-15 16:31] LABS: CHOL/HDL RATIO 2.3 (1-4.5); FREE T4 (FREE THYROXINE) 1.12 ng/dL (0.76-1.46); MAGNESIUM 1.8 mg/dL (1.8-2.4); PHOSPHORUS 4.3 mg/dL (2.5-4.9); THYROID STIMULATING HORMONE 0.56 uIU/mL (0.34-3.74)
--- NOTE | 2023-01-15 17:52 | NUR ---
Dr Johnson notified about glucose, 230, pt on d5ns 125 cc/hour
--- NOTE | 2023-01-15 17:52 | NUR ---
Dr Johnson notified about bs
--- NOTE | 2023-01-15 18:02 | NUR ---
Dr Johnson replied, accucheck ACHS w sliding scale
--- NOTE | 2023-01-15 19:54 | NUR ---
pt is resting on the bed. she is tachy. room air.
--- NOTE | 2023-01-15 20:50 | NUR ---
Dr. christian was at bedside and asked the nurse to order gastro small bowel follow through.
[2023-01-15 21:39] LABS: APPEARANCE,URINE CLEAR (CLEAR); BILIRUBIN,URINE NEGATIVE (NEGATIVE); BLOOD, URINE 1+ (NEGATIVE); COLOR,URINE YELLOW (YELLOW); LEUKOCYTE ESTERASE ,URINE NEGATIVE (NEGATIVE); NITRITE, URINE POSITIVE (NEGATIVE); PH,URINE 5.5 (5.0-9.0); UGLUCOSE TRACE (NEGATIVE)
[2023-01-15] MEDS: BLOOD GLUCOSE MONITORING 1 DEV DEV FS SCH (21:45)
--- NOTE | 2023-01-15 21:45 | NUR ---
radiology came and started the procedure. ask the nurse stop the suction.
[2023-01-15 21:51] LABS: WBC,URINE 0-5 /HPF (0-5)
[2023-01-15 21:52] LABS: TRICHOMONAS,URINE None Seen /HPF (None Seen); YEAST,URINE None Seen /HPF (None Seen)
[2023-01-16] MEDS: DEXT 5% /NACL 0.9% 1,000 ML IV SCH ×4 (00:19→15:39)
--- NOTE | 2023-01-16 01:46 | NUR ---
pt is asking for a bed garcia. she voided 200 ml. pt is tolerate well
--- NOTE | 2023-01-16 04:00 | NUR ---
patient asking for more blanket.
[2023-01-16 06:35] LABS: BASOPHILS % (AUTO) 0.1 % (0.0-2.0); EOSINOPHILS # (AUTO) 0.2 K/uL (0-0.4); EOSINOPHILS % (AUTO) 2.2 % (0.0-4.0); HEMATOCRIT 37.5 % (36-48); HEMOGLOBIN 12.4 g/dL (12.0-16.0); LYMPHOCYTES # (AUTO) 2.4 K/uL (2.5-16.5); LYMPHOCYTES % (AUTO) 27.1 % (20.5-51.1); MEAN CORPUSCULAR HEMOGLOBIN 28 pg (27-31); MEAN CORPUSCULAR HGB CONC 33 g/dL (33-37); MEAN CORPUSCULAR VOLUME 83.3 fL (80-94); NEUTROPHILS # (AUTO) 5.3 K/uL (1.8-7.7); NEUTROPHILS % (AUTO) 59.6 % (42.2-75.2); PLATELET COUNT (AUTO) 187 K/uL (140-450); RED BLOOD CELL COUNT(AUTO) 4.49 MIL/uL (4.20-5.40); RED CELL DISTRIBUTION WIDTH 16.7 % (11.6-13.7); WHITE BLOOD COUNT (AUTO) 8.9 K/uL (4.8-10.8)
[2023-01-16 06:42] LABS: ANION GAP 12.7 (8-16); CARBON DIOXIDE 27.2 mmol/L (21-32); CHLORIDE 108 mmol/L (98-107); CREATININE 0.7 mg/dL (0.6-1.3); GLUCOSE 276 mg/dL (74-106); POTASSIUM 3.9 mmol/L (3.5-5.1); SODIUM SERUM 144 mmol/L (136-145); UREA NITROGEN, BLOOD 12 mg/dL (7-18)
--- NOTE | 2023-01-16 07:18 | NUR ---
report received from zander boone, transfer of care at this time
[2023-01-16] MEDS: BLOOD GLUCOSE MONITORING 1 DEV DEV FS SCH ×4 (07:34→20:47)
[2023-01-16] MEDS: INSULIN LISPRO SLIDING SCALE 100 UNITS/ML VIAL SUBQ PRN ×4 (07:35→20:49)
--- NOTE | 2023-01-16 07:45 | NUR ---
DR CENTENO INFORMED OF PT BS, PLACED SLIDING SCALE ORDERS GIVEN TORB, PT IN BED EYES CLOSED, RESPIRATIONS EVEN AND UNLABORED, CONTINUED INFUSION OF D5NS 125 AT LAC, NO DISTRESS NOTED, PT DENIES PAIN AT THIS TIME.
--- NOTE | 2023-01-16 08:01 | NUR ---
SPOKE TO DR VANCE ON THE PHONE, INFORMED OF PT CONDITION, INFORMED THAT RESULTS FOR SMALL BOWEL THROUGH HAS NOT YET BEEN DICTATED, WILL CALL FOR ANY CHANGES AND RESULTS
--- NOTE | 2023-01-16 08:31 | NUR ---
PATIENT HAS BEEN SCREENED AND CATEGORIZED LOW NUTRITION RISK. PATIENT WILL BE SEEN WITHIN 7 DAYS OF ADMISSION. 01/15/23-01/22/[address]
--- NOTE | 2023-01-16 08:38 | NUR ---
SPOKE TO DR SANTANA, INFORMED OF PT STATUS, OUTPUT OF NG LESS THAN 100CC NOTED, PER MD GUY NPO AND NG AND START PT ON CLEAR LIQUID DIET IN AM, IF TOLERATING CLEAR LIQUID MOVE TO FULL LIQUID AT LUNCH
[2023-01-16] MEDS: PANTOPRAZOLE 40 MG TABEC PO SCH (08:51)
[2023-01-16] MEDS: HYDROcodone/APAP 7.5/325 MG 1 TAB PO PRN ×2 (08:51→13:06)
--- NOTE | 2023-01-16 08:57 | NUR ---
NGT IN RIGHT NARE REMOVED. PT TOLERATED PROCEDURE WELL
--- NOTE | 2023-01-16 09:44 | NUR ---
NO NAUSEA OR VOMITING NOTED AFTER NGT REMOVAL, PT TOLERATED A CUP OF WATER WELL
[2023-01-16] MEDS ORDERED: lisinopriL 20 MG TAB PO ONE (11:15)
--- NOTE | 2023-01-16 12:56 | NUR ---
PT WAS ABLE TO TOLERATE CLEAR LIQUID LUNCH. NO VOMITUS OR NAUSEA NOTED AT THIS TIME
[2023-01-16 16:00] VITALS: BP 138/74
[2023-01-16] MEDS: LEVOFLOXACIN 750 MG/D5W PREMIX 150 ML IV SCH (16:00)
--- NOTE | 2023-01-16 19:55 | NUR ---
PATIENT IN BED AWAKE ALERT AND ORIENTED RESTING COMFORTABLY ON ROOM AIR. NO SOB NOTED. NO COMPLAINTS OF PAIN. IVF D5NS INFUSING 125 ML/HR ON THE LEFT AC. CALL LIGHT WITHIN REACH. SAFETY MEASURES IN PLACE. FAMILY MEMBER AT BEDSIDE.
--- NOTE | 2023-01-16 20:47 | NUR ---
BLOOD SUGAR CHECKED WAS 170. ADMINISTERED HUMALOG INSULIN ORDERED PER SLIDING SCALE.
[2023-01-17] VITALS: BP 131/60
[2023-01-17] MEDS: DEXT 5% /NACL 0.9% 1,000 ML IV SCH ×2 (00:24→06:50)
[2023-01-17 06:25] LABS: BASOPHILS % (AUTO) 0.5 % (0.0-2.0); EOSINOPHILS # (AUTO) 0.4 K/uL (0-0.4); EOSINOPHILS % (AUTO) 5.4 % (0.0-4.0); HEMATOCRIT 35.7 % (36-48); HEMOGLOBIN 11.7 g/dL (12.0-16.0); LYMPHOCYTES # (AUTO) 3.1 K/uL (2.5-16.5); LYMPHOCYTES % (AUTO) 38.2 % (20.5-51.1); MEAN CORPUSCULAR HEMOGLOBIN 28 pg (27-31); MEAN CORPUSCULAR HGB CONC 33 g/dL (33-37); MEAN CORPUSCULAR VOLUME 84.1 fL (80-94); MONOCYTES # (AUTO) 0.7 K/uL (0.8-1.0); NEUTROPHILS # (AUTO) 3.9 K/uL (1.8-7.7); NEUTROPHILS % (AUTO) 47.9 % (42.2-75.2); PLATELET COUNT (AUTO) 168 K/uL (140-450); RED BLOOD CELL COUNT(AUTO) 4.25 MIL/uL (4.20-5.40); RED CELL DISTRIBUTION WIDTH 16.4 % (11.6-13.7); WHITE BLOOD COUNT (AUTO) 8.2 K/uL (4.8-10.8)
[2023-01-17 06:36] LABS: ANION GAP 10.8 (8-16); CARBON DIOXIDE 28.1 mmol/L (21-32); CHLORIDE 106 mmol/L (98-107); CREATININE 0.6 mg/dL (0.6-1.3); GLUCOSE 235 mg/dL (74-106); POTASSIUM 3.9 mmol/L (3.5-5.1); SODIUM SERUM 141 mmol/L (136-145); UREA NITROGEN, BLOOD 6 mg/dL (7-18)
[2023-01-17] MEDS: BLOOD GLUCOSE MONITORING 1 DEV DEV FS SCH ×3 (06:42→17:11)
[2023-01-17] MEDS: INSULIN LISPRO SLIDING SCALE 100 UNITS/ML VIAL SUBQ PRN ×3 (06:42→17:14)
--- NOTE | 2023-01-17 06:42 | NUR ---
PATIENT BLOOD SUGAR CHECKED WAS 231, ADMINISTERED HUMALOG INSULIN ORDERED PER SLIDING SCALE
--- NOTE | 2023-01-17 07:05 | NUR ---
GAVE REPORT TO DAY SHIFT NURSE FOR CONTINUITY OF CARE. PATIENT IN STABLE CONDITION.
[2023-01-17 08:00] VITALS: BP 140/75
[2023-01-17] MEDS: PANTOPRAZOLE 40 MG TABEC PO SCH (08:37)
[2023-01-17] MEDS ORDERED: lisinopriL 20 MG TAB PO SCH (09:00)
[2023-01-17 09:06] LABS: T4 (THYROXINE) 8.2 ug/dL (4.5-12.0)
[2023-01-17] MEDS ORDERED: IBUPROFEN 600 MG TAB PO SCH (12:10)
[2023-01-17] MEDS ORDERED: DOCUSATE SODIUM 100 MG GELCAP PO PRN (12:10)
[2023-01-17] MEDS ORDERED: DEXTROSE 50% 50 ML SYR IVP PRN (12:15)
[2023-01-17] MEDS ORDERED: INSULIN LISPRO SLIDING SCALE 100 UNITS/ML VIAL SUBQ PRN (12:15)
[2023-01-17] MEDS: LEVOFLOXACIN 750 MG/D5W PREMIX 150 ML IV SCH (15:44)
[2023-01-17 15:45] VITALS: BP 131/74
[2023-01-17 16:00] VITALS: BP 129/71
[2023-01-17] MEDS ORDERED: BLOOD GLUCOSE MONITORING 1 DEV DEV FS SCH (16:30)
--- NOTE | 2023-01-17 17:59 | NUR ---
Pt. DC home with daughter at bedside, Afebrile. VS WNL. Educated pt. to make a f/u appointment in a week.
[2023-01-17] MEDS ORDERED: ATORVASTATIN 20 MG TAB PO SCH (21:00)
[2023-01-17] MEDS ORDERED: GABAPENTIN 300 MG CAP PO SCH (21:00)
[2023-01-18] MEDS ORDERED: amLODIPine 5 MG TAB PO SCH (09:00)
== END 2023-01-17 17:57 | disposition home or self-care (01) | DRG 872 ==
LOC: MED 10:19 → MTU 14:34 → MMU 01-16 13:59
PROVIDERS: ADMIT Family Medicine; ATTEND Family Medicine
DX: A41.9 Sepsis, unspecified organism (principal); K56.609 Unspecified intestinal obstruction, unspecified as to partial versus complete obstruction; A09 Infectious gastroenteritis and colitis, unspecified; I10 Essential (primary) hypertension; E11.9 Type 2 diabetes mellitus without complications; E78.00 Pure hypercholesterolemia, unspecified; K43.9 Ventral hernia without obstruction or gangrene; Z20.822 Contact with and (suspected) exposure to COVID-19; Z90.710 Acquired absence of both cervix and uterus
CPT/HCPCS: 36415; 71045; 74250; 80048; 80053; 81001; 82150; 82948; 83036; 83605; 83690; 83735; 83880; 84100; 84436; 84439; 84443; 84479; 85025; 85610; 85730; 87081; 87086; 93005; 96374; 96375; 96376; 99285; J1815; J1956; J2270; J2405; J7042; Q0092; Q9967

== ENCOUNTER 2023-03-21 19:33 | Inpatient (IN) | payer OTHER ==
[~2023-03-21] VITALS: Ht 157.5 cm; Wt 86.6 kg
[~2023-03-21 19:33] MED LIST changes: -LORA10TA19 PO; -LOSARTAN HCTZ PO
[2023-03-21 19:57] VITALS: BP 100/92
[2023-03-21 21:31] LABS: BASOPHILS % (AUTO) 0.2 % (0.0-2.0); EOSINOPHILS # (AUTO) 0.1 K/uL (0-0.4); EOSINOPHILS % (AUTO) 0.7 % (0.0-4.0); HEMATOCRIT 40.6 % (36-48); HEMOGLOBIN 13.5 g/dL (12.0-16.0); LYMPHOCYTES # (AUTO) 2.9 K/uL (2.5-16.5); LYMPHOCYTES % (AUTO) 19.8 % (20.5-51.1); MEAN CORPUSCULAR HEMOGLOBIN 27 pg (27-31); MEAN CORPUSCULAR HGB CONC 33 g/dL (33-37); MEAN CORPUSCULAR VOLUME 82.2 fL (80-94); MONOCYTES # (AUTO) 0.7 K/uL (0.8-1.0); NEUTROPHILS # (AUTO) 10.8 K/uL (1.8-7.7); NEUTROPHILS % (AUTO) 74.3 % (42.2-75.2); PLATELET COUNT (AUTO) 226 K/uL (140-450); RED BLOOD CELL COUNT(AUTO) 4.94 MIL/uL (4.20-5.40); RED CELL DISTRIBUTION WIDTH 15.7 % (11.6-13.7); WHITE BLOOD COUNT (AUTO) 14.5 K/uL (4.8-10.8)
[2023-03-21 21:46] LABS: ALBUMIN 4.1 g/dL (3.4-5.0); ANION GAP 11.1 (8-16); ASPARTATE AMINOTRANSFERASE 18 U/L (15-37); CHLORIDE 101 mmol/L (98-107); CREATININE 0.8 mg/dL (0.6-1.3); GLUCOSE 187 mg/dL (74-106); LIPASE 337 U/L (73-393); POTASSIUM 4.1 mmol/L (3.5-5.1); SODIUM SERUM 139 mmol/L (136-145); TOTAL BILIRUBIN 0.3 mg/dL (0.0-1.0); UREA NITROGEN, BLOOD 13 mg/dL (7-18)
[2023-03-21] MEDS ORDERED: ONDANSETRON 4 MG/2 ML VIAL IVP ONE (22:40)
[2023-03-21] MEDS ORDERED: MORPHINE SULFATE 4 MG/ML SYR IVP ONE (22:40)
[2023-03-21] MEDS ORDERED: NACL 0.9% 1,000 ML IV ONE (22:40)
--- NOTE | 2023-03-21 23:32 | NUR ---
PT TO BED #9
[2023-03-21] MEDS ORDERED: ONDANSETRON 4 MG/2 ML VIAL ONE (23:41)
[2023-03-21] MEDS ORDERED: MORPHINE SULFATE 4 MG/ML SYR ONE (23:42)
--- NOTE | 2023-03-21 23:45 | NUR ---
Patient resting in bed, A/Ox4, chest rise and fall symmetrical, no s/s of distress, on monitor.
[2023-03-22 00:02] LABS: APPEARANCE,URINE CLEAR (CLEAR); BILIRUBIN,URINE NEGATIVE (NEGATIVE); BLOOD, URINE NEGATIVE (NEGATIVE); COLOR,URINE YELLOW (YELLOW); LEUKOCYTE ESTERASE ,URINE NEGATIVE (NEGATIVE); NITRITE, URINE NEGATIVE (NEGATIVE); UGLUCOSE NEGATIVE (NEGATIVE)
[2023-03-22] MEDS ORDERED: HYDROcodone/APAP 5/325 MG 1 TAB TAB PO PRN (00:30)
[2023-03-22] MEDS ORDERED: MAGNESIUM OXIDE 400 MG TAB PO PRN (00:30)
[2023-03-22] MEDS ORDERED: MAG SULF 2000 MG/WATER PREMIX 50 ML IV PRN (00:30)
[2023-03-22] MEDS: NACL 0.9% 1,000 ML IV SCH ×2 (00:30→13:20)
[2023-03-22] MEDS ORDERED: KCL 20 MEQ IN 100 mL PREMIX 200 ML IV PRN (00:30)
[2023-03-22] MEDS ORDERED: POTASSIUM CHLORIDE 10 MEQ TABER PO PRN (00:30)
--- NOTE | 2023-03-22 01:00 | NUR ---
Patient resting in bed, A/Ox4, chest rise and fall symmetrical, no c/o pain or s/s of distress, on monitor.
--- NOTE | 2023-03-22 03:06 | NUR ---
Patient resting in bed, A/Ox4, chest rise and fall symmetrical, no c/o pain or s/s of distress, on monitor.
--- NOTE | 2023-03-22 03:28 | NUR ---
X-Ray at bedside.
--- NOTE | 2023-03-22 03:41 | NUR ---
NGtube inserted via right nares. Patient tolerated procedure well. ER physician verified insertion.
--- NOTE | 2023-03-22 03:41 | NUR ---
Patient resting in bed, A/Ox4, chest rise and fall symmetrical, no c/o pain or s/s of distress, on monitor.
--- NOTE | 2023-03-22 03:43 | NUR ---
Patient will be admitted to care of Dr. De La Torre. Admited to [facility]. Will go to room 120A. Belongings list completed. Report to Neelima VIVAR. Neelima VIVAR verbalized understanding of report, no further questions. Neelima VIVAR verbalized that she "will call admitting physician for sliding scale/DM order."
--- NOTE | 2023-03-22 04:00 | NUR ---
RECEIVED PT ADMITTED TO [facility], [place] FROM ER, CAME VIA GURNEY WITH CHIEF COMPLAINTS OF ABDOMINAL PAIN AND NAUSEA/VOMITING X 4 DAYS AND NO BM SINCE YESTERDAY. DIAGNOSIS OF SMALL BOWEL OBSTRUCTION. PT IS WITH HISTORY OF OVARIAN CANCER, HTN, HYPERLIPIDEMIA, DM, HYSTERECTOMY, OOPHORECTOMY AND SHORT BOWEL OBSTRUCTION REPAIR. AWAKE, ALERT AND VERBALLY RESPONSIVE IN [place]. IV SITE ON RIGHT HAND IS INTACT AND PATENT, INFUSING NOMAL SALINE AT 80 ML/HR. PT IS FULL CODE WITH NO KNOWN ALLERGY. PT IS NOW NPO EXCEPT MEDS. PT IS WITH NASOPHARYNX INTERMITTENT SUCTIONING. RESPIRATION EVEN AND BILATERAL LUNGS CLEAR, NO SOB OR DISTRESS.
--- NOTE | 2023-03-22 06:00 | NUR ---
PT IS SLEEPING WELL, NO SOB OR DISTRESS. CONTINUE MONITORING.
--- NOTE | 2023-03-22 07:30 | NUR ---
PT IS ON STABLE CONDITION. SAFETY MEASURES ARE IN PLACE. ENDORSED TO DAY SHIFT NURSE FOR CONTINUITY OF CARE.
[2023-03-22 08:00] VITALS: BP 149/77
--- NOTE | 2023-03-22 08:52 | NUR ---
PATIENT HAS BEEN SCREENED AND CATEGORIZED MODERATE NUTRITION RISK. PATIENT WILL BE SEEN WITHIN 3-5 DAYS OF ADMISSION. 03/22/23-03/27/23 REFERRAL RECEIVED FOR DM PT WILL BE SEEN IN 3-5 DAYS OF REFERRAL. REVIEWED BY ALICIA GOLDEN RD
[2023-03-22] MEDS: MORPHINE SULFATE 2 MG/ML SYR IVP PRN ×2 (11:15→15:36)
--- NOTE | 2023-03-22 11:47 | NUR ---
DC PLANN[age] YRS OLD FEMALE PATIENT WAS ADMITTED FROM HOME WITH A DX OF SBO. PATIENT HAS A HX OF HTN, OVARIAN CANCER HLD, DM, HYSTERECTOMY AND SHORT BOWEL OBSTRUCTION. CT ABD SHOWED SBO. ADMINISTERED IVF AND CONTINUED HOME MEDS. URINE CULTURE PENDING. CONSULTED WITH SURGEON. DC PLAN TO GO HOME WHEN STABLE. CM TO FOLLOW
[2023-03-22 16:00] VITALS: BP 169/76
--- NOTE | 2023-03-22 19:32 | NUR ---
ENDORSE PATIENT TO PM SHIFT NURSE ATE SMALL BOWEL SERIES DONE AND NG-TUBE CONNECTING TO WALL SUCTION FOR DRAINAGE SUCTION OUT.
--- NOTE | 2023-03-22 19:33 | NUR ---
RECEIVED ENDORSEMENT FROM DARLIN VIVAR, PATIENT WAS STABLE DURING SHIFT CHANGE. PATIENT IN BED WITH NG TUBE AT CONTINUOUS SUCTION AND FAMILY AT BEDSIDE. PATIENT FAMILY EXPRESSED THAT PATIENT IS DIABETIC AND HAS NO ORDERS FOR ACCUCHECK OR COVERAGE IF BLOOD SUGAR IS OUT OF RANGE. NURSING ASSURED THAT THE MD WILL BE NOTIFIED FOR ORDERS TO MONITOR FOR HYPO/HYPERGLYCEMIA. PATIENT HAD BEDSIDE COMMODE AT BEDSIDE FOR RESTROOM NEEDS. PATIENT WAS BREATHING ON ROOM AIR WITHOUT DISTRESS. NO NOTED S/S OF HYPER/HYPOGLYCEMIA. RIGHT FOOT DRESSING WRAPPED AND INTACT. PATIENT DENIES ANY PAIN/DISCOMFORT. ALL NEEDS MET. SIDE RAILS UP FOR ASSISTANCE AND ADJUSTMENT. CALL LIGHT WITHIN REACH. [email or web address]
[2023-03-22 20:00] VITALS: BP 152/86
--- NOTE | 2023-03-22 20:00 | NUR ---
Patient's Plan of Care was discussed and reviewed with ESTRELLITA SHEPHERD.
--- NOTE | 2023-03-22 20:51 | NUR ---
PATIENT USED BEDSIDE COMMODE AND HAS LOOSE STOOL OVER 500ML. PATIENT CONTINUES ON NG TUBE SUCTIONING WITHOUT INCIDENT. ALL NEEDS MET. CALL LIGHT WITHIN REACH. KEPT CLEAN AND DRY. [email or web address]
--- NOTE | 2023-03-22 21:04 | NUR ---
CALLED MD FOR ACCUCHECK AND INSULIN COVERAGE. AWAITING FOR CALL BACK FOR ORDERS. [email or web address]
[2023-03-22] MEDS ORDERED: DEXTROSE 50% 50 ML SYR IVP PRN (21:10)
--- NOTE | 2023-03-22 21:31 | NUR ---
NEW ORDERS FOR ACCUCHECK AC AND HS WITH COVERGE. CURRENT LEVEL NOTED A 147 NO COVERAGE NEEDED. [email or web address]
--- NOTE | 2023-03-23 00:58 | NUR ---
PATIENT NOTED IN BED SLEEPING. NO NOTED S/S OF PAIN/DISCOMFORT. NG TUBE CONTINUES TO SUCTION WITHOUT INCIDENT. CHEST RISING AND FALLING WITHOUT INCIDENT. SIDE RAILS UP X 2 CALL LIGHT WITHIN REACH. [email or web address]
[2023-03-23] MEDS: NACL 0.9% 1,000 ML IV SCH ×2 (01:40→14:01)
--- NOTE | 2023-03-23 03:44 | NUR ---
PATIENT NOTED IN BED ASLEEP. NO NOTED RESPIRATORY DISTRESS NOTED WITH NG TUBE IN PLACE. NO MORE NOTED LOOSE STOOL. NO S/S OF PAIN/DISCOMFORT. ALL NEEDS MET. CALL LIGHT IN REACH. SIDE RAILS UP X 2 FOR ADJUSTMENT AND COMFORT. [email or web address]
[2023-03-23 04:00] VITALS: BP 136/72
--- NOTE | 2023-03-23 05:18 | NUR ---
NO COMPLAINS OF PAIN/DISCOMFORT. WILL ENDORSE SHIFT TO AM NURSING. NO NOTED RESPIRATORY DISTRESS. CALL LIGHT WITHIN REACH. [email or web address]
[2023-03-23 05:30] LABS: BASOPHILS % (AUTO) 0.2 % (0.0-2.0); EOSINOPHILS # (AUTO) 0.1 K/uL (0-0.4); EOSINOPHILS % (AUTO) 1.3 % (0.0-4.0); HEMATOCRIT 34.4 % (36-48); HEMOGLOBIN 11.5 g/dL (12.0-16.0); LYMPHOCYTES # (AUTO) 2.9 K/uL (2.5-16.5); LYMPHOCYTES % (AUTO) 33.8 % (20.5-51.1); MEAN CORPUSCULAR HEMOGLOBIN 28 pg (27-31); MEAN CORPUSCULAR HGB CONC 33 g/dL (33-37); MEAN CORPUSCULAR VOLUME 82.6 fL (80-94); MONOCYTES # (AUTO) 0.7 K/uL (0.8-1.0); MONOCYTES % (AUTO) 8.3 % (1.7-9.3); NEUTROPHILS # (AUTO) 4.9 K/uL (1.8-7.7); NEUTROPHILS % (AUTO) 56.4 % (42.2-75.2); PLATELET COUNT (AUTO) 178 K/uL (140-450); RED BLOOD CELL COUNT(AUTO) 4.16 MIL/uL (4.20-5.40); WHITE BLOOD COUNT (AUTO) 8.6 K/uL (4.8-10.8)
[2023-03-23 06:03] LABS: ALBUMIN 2.8 g/dL (3.4-5.0); ANION GAP 7.3 (8-16); ASPARTATE AMINOTRANSFERASE 13 U/L (15-37); CARBON DIOXIDE 28.3 mmol/L (21-32); CHLORIDE 110 mmol/L (98-107); CREATININE 0.6 mg/dL (0.6-1.3); GLUCOSE 131 mg/dL (74-106); MAGNESIUM 1.7 mg/dL (1.8-2.4); POTASSIUM 3.6 mmol/L (3.5-5.1); SODIUM SERUM 142 mmol/L (136-145); TOTAL BILIRUBIN 0.4 mg/dL (0.0-1.0); UREA NITROGEN, BLOOD 15 mg/dL (7-18)
[2023-03-23] MEDS: BLOOD GLUCOSE MONITORING 1 DEV DEV FS SCH ×4 (06:41→20:43)
[2023-03-23 08:00] VITALS: BP 126/55
--- NOTE | 2023-03-23 10:30 | NUR ---
DC PLANNING ASSESSMENT COMPLETE PLEASE REFER TO ASSESSMENT FOR ADDITIONAL DETAILS FADI AVILEZ DC PLAN IS FOR PT TO RETURN HOME WITH FAMILY PROVIDING TRANSPORTATION, WHEN MEDICALLY STABLE. Addendum: 03/24/23 at 0907 by Rachel MIRELES Amended: Links added.
[2023-03-23] MEDS ORDERED: MAG SULF 2000 MG/WATER PREMIX 50 ML IV SCH (14:15)
[2023-03-23 16:00] VITALS: BP 145/81
--- NOTE | 2023-03-23 19:09 | NUR ---
ENDORSE PATIENT IN STABLE CONDITION TO PM SHIFT NURSE WHILE PIV INFUSING NS @80ML/HR VIA R. HAND, NG TUBE SUCTION CONTINUE BUT NOT MUCH DRAINAGE OUTPUT TODAY
--- NOTE | 2023-03-23 19:30 | NUR ---
RECEIVED REPORT FROM ESTRELLITA SHEPHERD FOR CONTINUITY OF CARE. PT AWAKE IN BED. RESPIRATIONS EVEN AND UNLABORED ON RA. NG-TUBE IN PLACE AT CONTINUOUS SUCTION. DENIES PAIN AND DISCOMFORT. SKIN INTACT, WARM AND DRY TO TOUCH. IV SITE ON RIGHT HAND 20G INFUSING NS AT 80ML/HR. POC DISCUSSED. REPORT GIVEN TO GHAZALA URIOSTEGUI. CALL LIGHT WITHIN REACH. SAFETY PRECAUTIONS IN PLACE. Addendum: 03/23/23 at 2339 by Rita Casillas LVN NG TUBE ON LOW INTERMITTENT SUCTION.
[2023-03-23 20:00] VITALS: BP 147/78
--- NOTE | 2023-03-23 20:00 | NUR ---
Patient's Plan of Care was discussed and reviewed with ESTRELLITA DANG
[2023-03-23] MEDS: DEXT 5% / NACL 0.9% 500 ML IV SCH (20:48)
--- NOTE | 2023-03-23 20:49 | NUR ---
ADMINISTERED DUE MED. PT TOLERATED WELL. NO INSULIN COVERAGE FOR BS 90. RECEIVED ORDER FROM DR SOW TO CHANGE IVF TO D5NS AT 80ML/HR.
[2023-03-24] MEDS: DEXT 5% / NACL 0.9% 500 ML IV SCH (02:55)
[2023-03-24 04:00] VITALS: BP 145/75
--- NOTE | 2023-03-24 05:12 | NUR ---
ASSISTED PT TO USE BEDSIDE COMMODE 4X THROUGHOUT SHIFT. NOTED 150CC OF GASTRIC DRAINAGE FROM NG-TUGE. PT DENIES PAIN. NO DISTRESS NOTED. SAFETY PRECAUTIONS REMAINED IN PLACE.
[2023-03-24] MEDS: BLOOD GLUCOSE MONITORING 1 DEV DEV FS SCH ×4 (06:40→21:41)
[2023-03-24 06:49] LABS: BASOPHILS % (AUTO) 0.3 % (0.0-2.0); EOSINOPHILS # (AUTO) 0.2 K/uL (0-0.4); EOSINOPHILS % (AUTO) 2.2 % (0.0-4.0); HEMATOCRIT 37.3 % (36-48); HEMOGLOBIN 12.5 g/dL (12.0-16.0); LYMPHOCYTES # (AUTO) 2.5 K/uL (2.5-16.5); LYMPHOCYTES % (AUTO) 26.7 % (20.5-51.1); MEAN CORPUSCULAR HEMOGLOBIN 28 pg (27-31); MEAN CORPUSCULAR HGB CONC 34 g/dL (33-37); MEAN CORPUSCULAR VOLUME 82.3 fL (80-94); MONOCYTES # (AUTO) 0.7 K/uL (0.8-1.0); MONOCYTES % (AUTO) 7.3 % (1.7-9.3); NEUTROPHILS # (AUTO) 5.9 K/uL (1.8-7.7); NEUTROPHILS % (AUTO) 63.5 % (42.2-75.2); PLATELET COUNT (AUTO) 178 K/uL (140-450); RED BLOOD CELL COUNT(AUTO) 4.53 MIL/uL (4.20-5.40); RED CELL DISTRIBUTION WIDTH 15.4 % (11.6-13.7); WHITE BLOOD COUNT (AUTO) 9.3 K/uL (4.8-10.8)
[2023-03-24 07:02] LABS: ALBUMIN 2.9 g/dL (3.4-5.0); ANION GAP 10.6 (8-16); ASPARTATE AMINOTRANSFERASE 16 U/L (15-37); CARBON DIOXIDE 26.8 mmol/L (21-32); CHLORIDE 106 mmol/L (98-107); CREATININE 0.5 mg/dL (0.6-1.3); GLUCOSE 148 mg/dL (74-106); MAGNESIUM 1.9 mg/dL (1.8-2.4); POTASSIUM 3.4 mmol/L (3.5-5.1); SODIUM SERUM 140 mmol/L (136-145); TOTAL BILIRUBIN 0.4 mg/dL (0.0-1.0); UREA NITROGEN, BLOOD 7 mg/dL (7-18)
--- NOTE | 2023-03-24 07:22 | NUR ---
GAVE BEDSIDE REPORT TO ESTRELLITA BUNCH FOR CONTINUITY OF CARE. PT IS STABLE.
--- NOTE | 2023-03-24 07:23 | NUR ---
RECEIVED PT FROM REPTILE FARMER NURSE FOR CONTINUITY OF CARE. PT IS AWAKE, AOX4. RESPIRATIONS EVEN AND UNLABORED ON RA. NGT IN PLACE CONNECTED TO SUCTION. IV ON R HAND 20G INFUSING D5 NS @80CC. NO DISTRESS NOTED. CALL LIGHT WITHIN REACH, ALL SAFETY PRECAUTIONS IN PLACE.
[2023-03-24 08:00] VITALS: BP 150/85
[2023-03-24] MEDS: DEXT 5% /NACL 0.9% 1,000 ML IV SCH ×2 (08:53→20:20)
--- NOTE | 2023-03-24 09:27 | NUR ---
NGT SUCTIONED TURNED OFF PER DR SAAB TO CHECK RESIDUAL AT 1300.
[2023-03-24] MEDS ORDERED: KCL 20 MEQ IN 100 mL PREMIX 200 ML IV SCH (13:00)
[2023-03-24] MEDS ORDERED: POTASSIUM CHLORIDE 40 MEQ, LIDOCAINE 1% 25 MG in NACL 0.9% 250 ML IV ONE (15:30)
--- NOTE | 2023-03-24 16:10 | NUR ---
PT WAS GIVEN 40MEQ POTASSIUM CHLORIDE FOR POTASSIUM LEVEL 3.4.
--- NOTE | 2023-03-24 16:10 | NUR ---
PER DR AVANI JOVEL TO BE TURNED ON.
[2023-03-24] MEDS: MORPHINE SULFATE 2 MG/ML SYR IVP PRN (17:37)
--- NOTE | 2023-03-24 17:37 | NUR ---
PT MEDICATED FOR PAIN BY GHAZALA MARTINO.
--- NOTE | 2023-03-24 19:20 | NUR ---
ENDORSED PT TO FOREIGN LEGAL CONSULTANT NURSE FOR CONTINUITY OF CARE. PT IS STABLE.
--- NOTE | 2023-03-24 19:21 | NUR ---
RECEIVED REPORT FROM ESTRELLITA BUNCH FOR CONTINUITY OF CARE. PT A/A/O IN BED WITH DAUGHTER RAGHAV AT BEDSIDE. PT ON RA WITH RESPIRATIONS EVEN AND UNLABORED. NO COMPLAINTS OF PAIN. WITH NG-TUBE CONNECTED TO INTERMITTENT SUCTION. IVF INFUSING TO RH 20G. POC DISCUSSED. REPORT GIVEN TO GHAZALA MCINTOSH. CALL LIGHT WITHIN REACH. SAFETY PRECAUTIONS IN PLACE.
[2023-03-24 20:00] VITALS: BP 145/71
--- NOTE | 2023-03-24 20:00 | NUR ---
Patient's Plan of Care was discussed and reviewed with MANUEL HARO:
--- NOTE | 2023-03-24 21:46 | NUR ---
ADMINISTERED DUE MED. NO INSULIN COVERAGE GIVEN FOR BS 133.
[2023-03-25] MEDS: DEXT 5% /NACL 0.9% 1,000 ML IV SCH ×3 (02:56→21:20)
[2023-03-25 04:00] VITALS: BP 146/88
--- NOTE | 2023-03-25 04:25 | NUR ---
PT SLEEPING WITH VISUAL CHEST RISE AND FALL. RESPIRATIONS 18BPM. NO SIGNS OF ANY DISCOMFORT NOTED.
[2023-03-25 05:31] LABS: BASOPHILS % (AUTO) 0.4 % (0.0-2.0); EOSINOPHILS # (AUTO) 0.1 K/uL (0-0.4); EOSINOPHILS % (AUTO) 1.2 % (0.0-4.0); HEMATOCRIT 36.8 % (36-48); HEMOGLOBIN 12.2 g/dL (12.0-16.0); LYMPHOCYTES # (AUTO) 2.6 K/uL (2.5-16.5); LYMPHOCYTES % (AUTO) 25.9 % (20.5-51.1); MEAN CORPUSCULAR HEMOGLOBIN 27 pg (27-31); MEAN CORPUSCULAR HGB CONC 33 g/dL (33-37); MEAN CORPUSCULAR VOLUME 82.7 fL (80-94); MONOCYTES # (AUTO) 0.8 K/uL (0.8-1.0); MONOCYTES % (AUTO) 8.1 % (1.7-9.3); NEUTROPHILS # (AUTO) 6.4 K/uL (1.8-7.7); NEUTROPHILS % (AUTO) 64.4 % (42.2-75.2); PLATELET COUNT (AUTO) 198 K/uL (140-450); RED BLOOD CELL COUNT(AUTO) 4.45 MIL/uL (4.20-5.40); RED CELL DISTRIBUTION WIDTH 15.6 % (11.6-13.7); WHITE BLOOD COUNT (AUTO) 9.9 K/uL (4.8-10.8)
[2023-03-25 05:33] LABS: ANION GAP 13.5 (8-16); CARBON DIOXIDE 25.9 mmol/L (21-32); CHLORIDE 105 mmol/L (98-107); POTASSIUM 3.4 mmol/L (3.5-5.1); SODIUM SERUM 141 mmol/L (136-145)
[2023-03-25 06:12] LABS: ASPARTATE AMINOTRANSFERASE 16 U/L (15-37); CREATININE 0.6 mg/dL (0.6-1.3); GLUCOSE 182 mg/dL (74-106); MAGNESIUM 1.9 mg/dL (1.8-2.4); TOTAL BILIRUBIN 0.4 mg/dL (0.0-1.0); UREA NITROGEN, BLOOD 8 mg/dL (7-18)
[2023-03-25] MEDS: INSULIN LISPRO SLIDING SCALE 100 UNITS/ML VIAL SUBQ PRN ×4 (06:42→20:51)
[2023-03-25] MEDS: BLOOD GLUCOSE MONITORING 1 DEV DEV FS SCH ×4 (06:42→20:49)
--- NOTE | 2023-03-25 07:15 | NUR ---
GAVE BEDSIDE REPORT TO ESTRELLITA BUNCH FOR CONTINUITY OF CARE. PT IS STABLE.
--- NOTE | 2023-03-25 07:16 | NUR ---
RECEIVED PT FROM REGISTERED VETERINARY TECHNICIAN NURSE MANUEL. PT IS IN BED, NG TUBE IN PLACE ON INTERMITTENT SUCTION. PT IS AWAKE, AOX4. RESPIRATIONS EVEN AND UNLABORED ON RA. NO DISTRESS NOTED. IV ON R HAND 20G INFUSING NS @80CC. CALL LIGHT WITHIN REACH, ALL SAFETY PRECAUTIONS IN PLACE.
[2023-03-25 08:00] VITALS: BP 164/82
[2023-03-25] MEDS: hydrALAZINE 20 MG/ML VIAL IVP PRN (09:55)
--- NOTE | 2023-03-25 09:55 | NUR ---
PT NOTED WITH ELEVATED BP 164/82. PT MEDICATED WITH IV HYDRALAZINE BY GHAZALA MOLINA.
[2023-03-25] MEDS: MORPHINE SULFATE 2 MG/ML SYR IVP PRN (11:24)
--- NOTE | 2023-03-25 11:24 | NUR ---
PT C/O GENERALIZED PAIN 08/07 MEDICATED WITH MORPHINE BY GHAZALA MOLINA.
--- NOTE | 2023-03-25 14:45 | NUR ---
DAUGHTER AT BEDSIDE.
[2023-03-25] MEDS ORDERED: POTASSIUM CHLORIDE 40 MEQ, LIDOCAINE 1% 25 MG in NACL 0.9% 250 ML IV PRN (15:15)
[2023-03-25 16:00] VITALS: BP 150/89
[2023-03-25] MEDS: MORPHINE SULFATE 4 MG/ML SYR IVP PRN (16:46)
--- NOTE | 2023-03-25 16:46 | NUR ---
PT C/O PAIN ON ABDOMEN 08/07 MEDICATED WITH MORPHINE BY GHAZALA MOLINA.
--- NOTE | 2023-03-25 18:06 | NUR ---
PT TEMPERATURE RISING FROM 99.[address] VARMA INFORMED. ORDERED BLOOD CULTURES.
[2023-03-25] MEDS: ONDANSETRON 4 MG/2 ML VIAL IVP PRN (19:05)
--- NOTE | 2023-03-25 19:05 | NUR ---
RECEIVED PT IN BED AWAKE, ALERT AND ORIENTED X4, PT FEELS NAUSEOUS, ZOFRAN PROVIDED ORDERED. DENIES PAIN AT THIS TIME. NO ACUTE RESPIRATORY DISTRESS NOTED. NGT TO LOW INTERMITTENT SUCTION. SKIN WARM AND DRY TO TOUCH. SAFETY PRECAUTIONS IN PLACE, CALL LIGHT IN PLACE.
--- NOTE | 2023-03-25 19:10 | NUR ---
ENDORSED PT TO MANAGER REGIONAL NURSE ARNALDO FOR CONTINUITY OF CARE.
[2023-03-25 20:00] VITALS: BP 149/70
--- NOTE | 2023-03-25 20:10 | NUR ---
INFORMED DR. VARMA TEMP-100.5, PER MD SLATER TO GIVE TYLENOL VIA NGT. WILL MEDICATE ORDERED.
--- NOTE | 2023-03-25 20:30 | NUR ---
PATIENT IS ASLEEP. NO NAUSEA NOR VOMITING NOTED. CALL LIGHT WITHIN REACH.
[2023-03-25] MEDS: ACETAMINOPHEN 325 MG TAB PO PRN (20:51)
--- NOTE | 2023-03-25 21:55 | NUR ---
TEMP RE CHECKED-97.8.
[2023-03-26] MEDS: DEXT 5% /NACL 0.9% 1,000 ML IV SCH ×2 (01:44→22:20)
--- NOTE | 2023-03-26 01:50 | NUR ---
PATIENT IS ASLEEP. NO S/SX OF PAIN NOR DISCOMFORT. CALL LIGHT IN REACH.
[2023-03-26 04:00] VITALS: BP 143/65
--- NOTE | 2023-03-26 04:13 | NUR ---
VITAL SIGNS TAKEN AND DOCUMENTED. VS WITHIN NORMAL LIITS. ASSISTED PT TO BEDSIDE COMMODE, AM CARE RENDERED. GOWN AND LINENS CHANGED. MADE COMFORTABLE IN BED, HEAD OF THE BED ELEVATED. CALL LIGHT PLACED WITHIN REACH.
[2023-03-26 06:07] LABS: LYMPHOCYTES # (AUTO) 0.8 K/uL (2.5-16.5); MEAN CORPUSCULAR VOLUME 82.8 fL (80-94); NEUTROPHILS # (AUTO) 13.7 K/uL (1.8-7.7); RED CELL DISTRIBUTION WIDTH 15.8 % (11.6-13.7)
[2023-03-26 06:27] LABS: ALBUMIN 3.1 g/dL (3.4-5.0); ANION GAP 12.9 (8-16); ASPARTATE AMINOTRANSFERASE 18 U/L (15-37); CARBON DIOXIDE 26.5 mmol/L (21-32); CHLORIDE 104 mmol/L (98-107); CREATININE 0.9 mg/dL (0.6-1.3); GLUCOSE 230 mg/dL (74-106); MAGNESIUM 1.6 mg/dL (1.8-2.4); POTASSIUM 3.4 mmol/L (3.5-5.1); SODIUM SERUM 140 mmol/L (136-145); TOTAL BILIRUBIN 0.8 mg/dL (0.0-1.0); UREA NITROGEN, BLOOD 9 mg/dL (7-18)
[2023-03-26] MEDS: BLOOD GLUCOSE MONITORING 1 DEV DEV FS SCH ×4 (06:31→20:16)
[2023-03-26] MEDS: INSULIN LISPRO SLIDING SCALE 100 UNITS/ML VIAL SUBQ PRN ×4 (06:32→20:18)
--- NOTE | 2023-03-26 06:45 | NUR ---
PATIENT IS ASLEEP. ALL NEEDS ATTENDED TO. NO DISTRESS NOTED. SAFETY PRECAUTIONS IN PLACE DURING THE SHIFT, CALL LIGHT REMAINS WITHIN REACH.
--- NOTE | 2023-03-26 06:46 | NUR ---
RECEIVED BEDSIDE REPORT FROM NIGHTSHIFT NURSE. PT IS IN BED, NG TUBE TO INTERMITTENT SUCTION. REORIENTED PT TO CALL LIGHT, NO FURTHER NEEDS ARE TO BE MET AT THIS TIME. WILL CONTINUE WITH CARE.
[2023-03-26] MEDS: ACETAMINOPHEN 325 MG TAB PO PRN (08:03)
[2023-03-26] MEDS: hydrALAZINE 20 MG/ML VIAL IVP PRN (08:03)
[2023-03-26 08:17] LABS: BASOPHILS % (AUTO) 0.2 % (0.0-2.0); HEMATOCRIT 37.6 % (36-48); HEMOGLOBIN 12.4 g/dL (12.0-16.0); LYMPHOCYTES % (AUTO) 5.4 % (20.5-51.1); MEAN CORPUSCULAR HEMOGLOBIN 27 pg (27-31); MEAN CORPUSCULAR HGB CONC 33 g/dL (33-37); MONOCYTES # (AUTO) 0.6 K/uL (0.8-1.0); MONOCYTES % (AUTO) 3.9 % (1.7-9.3); NEUTROPHILS % (AUTO) 90.5 % (42.2-75.2); PLATELET COUNT (AUTO) 171 K/uL (140-450); RED BLOOD CELL COUNT(AUTO) 4.54 MIL/uL (4.20-5.40)
[2023-03-26 08:19] LABS: WHITE BLOOD COUNT (AUTO) 15.2 K/uL (4.8-10.8)
[2023-03-26] MEDS: MORPHINE SULFATE 4 MG/ML SYR IVP PRN ×2 (08:41→18:27)
[2023-03-26] MEDS ORDERED: ACETAMINOPHEN 100 ML IV PRN (09:05)
[2023-03-26] MEDS: PIPERACILLIN/TAZOBACTAM 3.375 GM in DEXTROSE 5% 50 ML IV SCH ×2 (13:30→20:16)
[2023-03-26] MEDS ORDERED: ACETAMINOPHEN 650 MG SUPP RC PRN (18:15)
[2023-03-26] MEDS ORDERED: ACETAMINOPHEN 650 MG SUPP RC ONE (18:24)
--- NOTE | 2023-03-26 19:29 | NUR ---
INFORMED DR. DAVEY OF MAGNESIUM 1.6, STANDING ORDER WAS FOR MG LESS THAN 1.5, ORDERED TO DO MG IN AM.
[2023-03-26] MEDS ORDERED: KCL 20 MEQ IN 100 mL PREMIX 200 ML IV SCH (19:30)
[2023-03-26] MEDS ORDERED: KCL 20 MEQ IN 100 mL PREMIX 200 ML IV ONE (19:33)
--- NOTE | 2023-03-26 19:40 | NUR ---
RECEIVED PT IN BED AWAKE,ALERT AND ORIENTED X 4. DAUGHTER AT THE BEDSIDE. DENIES PAIN. NO ACUTE RESPIRATORY DISTRESS NOTED. NGT IN PLACE ATTACHED TO LOW INTERMITTENT SUCTION, DARK BROWN FLUID NOTED. SKIN WARM AND DRY TO TOUCH. IVF INFUSING WELL ORDERED. BED IN THE LOWEST AND LOCKED POSITION FOR SAFETY. CALL LIGHT IN REACH, ENCOURAGED TO CALL IF ASSISTANCE IS NEEDED, PT VERBALLY ACKNOWLEDGED.
--- NOTE | 2023-03-26 19:44 | NUR ---
PT HAD FEVER. MD AWARE. TYLENOL AND COOLING MEASURES PROVIDED WITH RELIEF. ENDORSED TO NIGHTSHIFT NURSE FOR CONTINUITY OF CARE.
[2023-03-26 20:00] VITALS: BP 109/61
--- NOTE | 2023-03-26 20:00 | NUR ---
VITAL SIGNS TAKEN AND DOCUMENTED. PT CURRENTLY AFEBRILE WITH TEMP-98.4.
--- NOTE | 2023-03-26 22:20 | NUR ---
ROUNDING DONE, PT CURRENTLY ASLEEP. BREATHING EVEN AND UNLABORED.
--- NOTE | 2023-03-27 00:10 | NUR ---
ASSISTED PT TO THE BEDSIDE COMMODE, VOIDED WITHOUT DIFFICULTY, COLLECTED URINE ORDERED. CLEANED PT, MADE COMFORTABLE IN BED, CALL LIGHT PLACED WITHIN REACH. PT AFEBRILE AT THIS TIME. TEMP-98.1 ORALLY TAKEN. PT APPRECIATIVE OF CARE.
[2023-03-27 04:00] VITALS: BP 112/62
--- NOTE | 2023-03-27 04:00 | NUR ---
VITAL SGNS TAKEN AND DOCUMENTED. VS WITHIN NORMAL LIMITS, PT AFEBRILE. DENIES PAIN.
[2023-03-27] MEDS: PIPERACILLIN/TAZOBACTAM 3.375 GM in DEXTROSE 5% 50 ML IV SCH ×3 (04:29→20:36)
[2023-03-27] MEDS: MORPHINE SULFATE 4 MG/ML SYR IVP PRN (04:47)
[2023-03-27] MEDS: ONDANSETRON 4 MG/2 ML VIAL IVP PRN (04:52)
--- NOTE | 2023-03-27 04:52 | NUR ---
ASSISTED PATIENT TO THE BEDSIDE COMMODE, VOIDED WITHOUT DIFFICULTY. ASSISTED BACK TO BED, PT COMPLAINED OF 10/10 ABDOMINAL PAIN, MEDICATED WITH MORPHINE ORDERED. FEELS NAUSEOUS, MEDICATED WITH ZOFRAN ORDERED. HEAD OF THE BED ELEVATED.
[2023-03-27] MEDS: DEXT 5% /NACL 0.9% 1,000 ML IV SCH ×2 (05:00→11:14)
--- NOTE | 2023-03-27 05:37 | NUR ---
PATIENT REQUESTED FOR HER TEMPERATURE TO BE CHECKED BECAUSE SHE FEELS VERY COLD, TEMP-98.8, ORALLY TAKEN. PROVIDED BLANKET.
--- NOTE | 2023-03-27 05:47 | NUR ---
RE-ASSESSED FOR PAIN, PER PT STILL 10/10 ABDOMINAL PAIN. CALL PLACED TO DR. BUCK MONUMENT MASON FOR DR. VARMA, AWAITING CALL BACK.
--- NOTE | 2023-03-27 06:10 | NUR ---
NEW ORDER FROM DR. BUCK, WILL CARRY OUT ORDERED.
[2023-03-27] MEDS: HYDROmorphone 1 MG/ML AMP IVP PRN ×2 (06:19→16:38)
--- NOTE | 2023-03-27 06:19 | NUR ---
PAIN MEDICATION GIVEN ORDERED. MADE COMFORTABLE IN BED. CALL LIGHT PLACED WITHIN [facility], INSTRUCTED PT TO CALL IF ASSISTANCE IS NEEDED. PT VERBALLY ACKNOWLEDGED.
[2023-03-27] MEDS: INSULIN LISPRO SLIDING SCALE 100 UNITS/ML VIAL SUBQ PRN ×4 (06:32→20:42)
[2023-03-27] MEDS: BLOOD GLUCOSE MONITORING 1 DEV DEV FS SCH ×4 (06:32→20:46)
--- NOTE | 2023-03-27 06:44 | NUR ---
PATIENT NOW ASLEEP. NO S/SX OF PAIN NOR DISCOMFORT. ALL NEEDS ATTENDED TO. SAFETY PRECAUTIONS IN PLACE, CALL LIGHT REMAINS WITHIN REACH.
[2023-03-27 07:02] LABS: BASOPHILS % (AUTO) 0.3 % (0.0-2.0); EOSINOPHILS # (AUTO) 0.1 K/uL (0-0.4); EOSINOPHILS % (AUTO) 0.7 % (0.0-4.0); HEMATOCRIT 35.3 % (36-48); HEMOGLOBIN 11.7 g/dL (12.0-16.0); LYMPHOCYTES # (AUTO) 1.2 K/uL (2.5-16.5); LYMPHOCYTES % (AUTO) 14.4 % (20.5-51.1); MEAN CORPUSCULAR HEMOGLOBIN 28 pg (27-31); MEAN CORPUSCULAR HGB CONC 33 g/dL (33-37); MEAN CORPUSCULAR VOLUME 82.8 fL (80-94); MONOCYTES # (AUTO) 0.1 K/uL (0.8-1.0); MONOCYTES % (AUTO) 0.9 % (1.7-9.3); NEUTROPHILS # (AUTO) 7.1 K/uL (1.8-7.7); NEUTROPHILS % (AUTO) 83.7 % (42.2-75.2); PLATELET COUNT (AUTO) 98 K/uL (140-450); RED BLOOD CELL COUNT(AUTO) 4.26 MIL/uL (4.20-5.40); RED CELL DISTRIBUTION WIDTH 16.1 % (11.6-13.7); WHITE BLOOD COUNT (AUTO) 8.4 K/uL (4.8-10.8)
--- NOTE | 2023-03-27 07:05 | NUR ---
RECEIVED REPORT FROM NIGHTSHIFT NURSE. PT IS RESTING IN BED, NO REPORTS OF PAIN/DISCOMFORT. REORIENTED PT TO CALL LIGHT. NO FURTHER NEEDS ARE TO BE MET AT THIS TIME. WILL CONTINUE WITH PT CARE.
[2023-03-27 07:09] LABS: ALBUMIN 2.8 g/dL (3.4-5.0); ANION GAP 15.9 (8-16); ASPARTATE AMINOTRANSFERASE 11 U/L (15-37); CARBON DIOXIDE 24.2 mmol/L (21-32); CHLORIDE 105 mmol/L (98-107); CREATININE 1.2 mg/dL (0.6-1.3); GLUCOSE 220 mg/dL (74-106); MAGNESIUM 1.7 mg/dL (1.8-2.4); POTASSIUM 3.1 mmol/L (3.5-5.1); SODIUM SERUM 142 mmol/L (136-145); UREA NITROGEN, BLOOD 21 mg/dL (7-18)
[2023-03-27 08:00] VITALS: BP 164/59
[2023-03-27] MEDS: hydrALAZINE 20 MG/ML VIAL IVP PRN (09:53)
--- NOTE | 2023-03-27 19:02 | NUR ---
03/27/23 RD INITIAL ASSESSMENT COMPLETED.PLEASE REFER TO NUTRITION ASSESSMENT UNDER CARE ACTIVITY FOR ESTIMATED NUTRITIONAL NEEDS. 1. CONTINUE NPO PER MD. WHEN/IF MEDICALLY APPROPRIATE, RECOMMEND CCHO DIET. 2. MONITOR NPO STATUS 3. RD TO FOLLOW-UP 3-5 DAYS, MODERATE RISK MOODY SCHULZ RD
--- NOTE | 2023-03-27 19:23 | NUR ---
ENDORSED PT TO NIGHTSHIFT NURSE FOR CONTINUITY OF CARE. PT IS STABLE, NO SIGNS OF DISTRESS. BED IN LOWEST POSITION, 2 SIDE RAILS UP AND CALL LIGHT WITHIN REACH.
[2023-03-27 20:00] VITALS: BP 121/64
--- NOTE | 2023-03-27 20:00 | NUR ---
NURSE REPORT REPORT OBTAINED FROM NIGHT NURSE KEON AT 1923 AND THIS NURSE ASSUMED CARE OF PATIENT. VSS. AFEB, NO C/O PAIN OR DISCOMFORT. MONAE RESENDEZ RN Addendum: 03/27/23 at 2224 by Agency Nurse GHAZALA Pleitez RN CORRECTION: [facility]
--- NOTE | 2023-03-27 20:48 | NUR ---
NURSE NOTES HS BG 181- GIVEN 2 UNITS HUMALOG
[2023-03-28] MEDS: HYDROmorphone 1 MG/ML AMP IVP PRN ×2 (02:20→13:45)
[2023-03-28] MEDS: ONDANSETRON 4 MG/2 ML VIAL IVP PRN (02:20)
[2023-03-28 04:00] VITALS: BP 139/85
[2023-03-28] MEDS: PIPERACILLIN/TAZOBACTAM 3.375 GM in DEXTROSE 5% 50 ML IV SCH ×3 (05:23→20:53)
[2023-03-28] MEDS: INSULIN LISPRO SLIDING SCALE 100 UNITS/ML VIAL SUBQ PRN ×4 (06:41→20:38)
[2023-03-28] MEDS: BLOOD GLUCOSE MONITORING 1 DEV DEV FS SCH ×4 (06:44→20:37)
--- NOTE | 2023-03-28 06:44 | NUR ---
NURSE NOTES AM BG 245- GIVEN 4 UNITS HUMALOG
--- NOTE | 2023-03-28 07:15 | NUR ---
NURSE REPORT REPORT GIVEN TO [facility] NURSE EDWARDS TO ASSUME CARE OF PATIENT. ALL QUESTIONS ANSWERED. MONAE RESENDEZ RN
--- NOTE | 2023-03-28 07:16 | NUR ---
RECEIVED BEDSIDE REPORT FROM NIGHTSHIFT NURSE. PT IS RESTING IN BED, AOX4, NO SIGNS OF DISTRESS, NO REPORTS OF PAIN/DISCOMFORT. NO FURTHER NEEDS ARE TO BE MET AT THIS TIME. WILL CONTINUE WITH CARE.
[2023-03-28] MEDS: PANTOPRAZOLE 40 MG INJ VIAL IVP SCH (09:53)
[2023-03-28 10:20] LABS: BASOPHILS # (AUTO) 0.1 K/uL (0.00-0.22); BASOPHILS % (AUTO) 0.4 % (0.0-2.0); EOSINOPHILS # (AUTO) 0.2 K/uL (0-0.4); EOSINOPHILS % (AUTO) 1.4 % (0.0-4.0); HEMOGLOBIN 11.2 g/dL (12.0-16.0); LYMPHOCYTES # (AUTO) 1.8 K/uL (2.5-16.5); MEAN CORPUSCULAR HEMOGLOBIN 27 pg (27-31); MEAN CORPUSCULAR HGB CONC 33 g/dL (33-37); MEAN CORPUSCULAR VOLUME 82.6 fL (80-94); MONOCYTES # (AUTO) 0.8 K/uL (0.8-1.0); MONOCYTES % (AUTO) 5.1 % (1.7-9.3); NEUTROPHILS # (AUTO) 12.1 K/uL (1.8-7.7); NEUTROPHILS % (AUTO) 81.1 % (42.2-75.2); PLATELET COUNT (AUTO) 109 K/uL (140-450); RED BLOOD CELL COUNT(AUTO) 4.12 MIL/uL (4.20-5.40); RED CELL DISTRIBUTION WIDTH 16.4 % (11.6-13.7); WHITE BLOOD COUNT (AUTO) 14.9 K/uL (4.8-10.8)
[2023-03-28 10:32] LABS: ANION GAP 7.1 (8-16); CARBON DIOXIDE 31.7 mmol/L (21-32); CHLORIDE 110 mmol/L (98-107); CREATININE 0.8 mg/dL (0.6-1.3); GLUCOSE 287 mg/dL (74-106); POTASSIUM 3.8 mmol/L (3.5-5.1); SODIUM SERUM 145 mmol/L (136-145); UREA NITROGEN, BLOOD 19 mg/dL (7-18)
[2023-03-28] MEDS: DEXT 5% /NACL 0.9% 1,000 ML IV SCH ×2 (12:23→19:50)
[2023-03-28] MEDS: hydrALAZINE 20 MG/ML VIAL IVP PRN (16:41)
[2023-03-28 20:00] VITALS: BP 137/75
--- NOTE | 2023-03-28 20:00 | NUR ---
Patient's Plan of Care was discussed and reviewed with MANUEL HARO:
--- NOTE | 2023-03-28 20:43 | NUR ---
ADMINISTERED DUE MEDS. SLIDING SCALE INSULIN GIVEN FOR BS 276.
[2023-03-29] MEDS: DEXT 5% /NACL 0.9% 1,000 ML IV SCH (00:20)
[2023-03-29 04:00] VITALS: BP 140/72
[2023-03-29] MEDS: PIPERACILLIN/TAZOBACTAM 3.375 GM in DEXTROSE 5% 50 ML IV SCH ×3 (05:30→20:25)
--- NOTE | 2023-03-29 05:40 | NUR ---
PT IN BED. NO COMPLAINTS OF PAIN. NO NAUSEA AND VOMITING. ABLE TO USE BEDSIDE COMMODE WITHOUT ASSIST. NO DISTRESS NOTED. SAFETY PRECAUTIONS MAINTAINED.
[2023-03-29] MEDS: BLOOD GLUCOSE MONITORING 1 DEV DEV FS SCH ×4 (06:50→20:18)
[2023-03-29] MEDS: INSULIN LISPRO SLIDING SCALE 100 UNITS/ML VIAL SUBQ PRN ×4 (06:51→20:19)
--- NOTE | 2023-03-29 07:08 | NUR ---
ASSUMED CONTINUITY OF CARE. INITIAL ASSESSMENT DONE. KEEP COMFORTABLE ON BED. EXPLAINED USE OF CALL LIGHT/BED/TV/BATHROOM. VERBALIZED UNDERSTANDING. CALL LIGHT WITHIN REACH.
--- NOTE | 2023-03-29 07:14 | NUR ---
GAVE BEDSIDE REPORT TO ESTRELLITA NEVES FOR CONTINUITY OF CARE. PT IS STABLE.
[2023-03-29 08:00] VITALS: BP 136/71
[2023-03-29] MEDS ORDERED: RIVASTIGMINE 9.5 MG/24 HR PATCH TD SCH ×2 (09:00)
[2023-03-29] MEDS: PANTOPRAZOLE 40 MG INJ VIAL IVP SCH (10:06)
[2023-03-29] MEDS: NACL 0.9% 1,000 ML IV SCH (13:00)
--- NOTE | 2023-03-29 18:15 | NUR ---
IV ON RIGHT AC GAUGE #20 INFILTRATED, D/C AND REMOVED. INSERTED NEW IV ON LEFT HAND GAUGE #22. APPLIED WARM TOWEL AND ELEVATED RUE. TOLERATED WELL.
--- NOTE | 2023-03-29 19:09 | NUR ---
REPORT GIVEN TO MANUEL FOR CONTINUITY OF CARE. IN STABLE CONDITION. IVF INFUSING WELL.
--- NOTE | 2023-03-29 19:10 | NUR ---
RECEIVED REPORT FROM ESTRELLITA NEVES FOR CONTINUITY OF CARE. PT AWAKE, SITTING IN BED WITH DAUGHTER AT BEDSIDE. PT DENIES PAIN. STATED SHE FELT BETTER. RESPIRATIONS EVEN AND UNLABORED ON RA. NOTED RUE SWELLING, ELEVATED. POC DISCUSSED. REPORT GIVEN TO GHAZALA CARTER. CALL LIGHT WITHIN REACH. SAFETY PRECAUTIONS IN PLACE.
[2023-03-29 20:00] VITALS: BP 147/72
--- NOTE | 2023-03-29 20:26 | NUR ---
DUE MEDS ADMINISTERED. SLIDING SCALE INSULIN GIVEN FOR BS 223. PT TOLERATED WELL.
[2023-03-30] MEDS: NACL 0.9% 1,000 ML IV SCH ×2 (00:45→02:49)
[2023-03-30 04:00] VITALS: BP 128/65
--- NOTE | 2023-03-30 04:02 | NUR ---
V/S WAS TAKEN. DENIES ANY PAIN. NO DISCOMFORT NOTED. ASSISTED PT TO BEDSIDE COMMODE. PT REMAINED CLEAN AND DRY.
[2023-03-30] MEDS: PIPERACILLIN/TAZOBACTAM 3.375 GM in DEXTROSE 5% 50 ML IV SCH ×2 (05:00→13:09)
[2023-03-30] MEDS: BLOOD GLUCOSE MONITORING 1 DEV DEV FS SCH ×2 (06:35→12:00)
--- NOTE | 2023-03-30 07:08 | NUR ---
ASSUMED CONTINUITY OF CARE. INITIAL ASSESSMENT DONE. KEEP COMFORTABLE ON BED. CALL LIGHT WITHIN REACH.
--- NOTE | 2023-03-30 07:08 | NUR ---
GAVE BEDSIDE REPORT TO ESTRELLITA NEVES FOR CONTINUITY OF CRAE. PT IS STABLE.
[2023-03-30 08:00] VITALS: BP 153/88
--- NOTE | 2023-03-30 08:19 | NUR ---
PAGED DR. SHAW REGARDING HEPARIN SODIUM 5000 UNITS SUB-Q ADMINISTRATION AND ORDER OF CBC, BMP LAB BLOOD DRAW. INFORMED CHARGE NURSE CHRIS BOYLE.
--- NOTE | 2023-03-30 09:07 | NUR ---
CALLED LAB AT EXT #[id number] AND SPOKE TO ANAYELI REGARDING STAT ORDER OF CBC, BMP.
--- NOTE | 2023-03-30 10:00 | NUR ---
DRUG DEPARTMENT WORKER AURELIA CAME FOR CBC, BMP STAT BLOOD DRAW.
[2023-03-30] MEDS: PANTOPRAZOLE 40 MG INJ VIAL IVP SCH (10:34)
[2023-03-30 10:36] LABS: BASOPHILS # (AUTO) 0.1 K/uL (0.00-0.22); BASOPHILS % (AUTO) 0.6 % (0.0-2.0); EOSINOPHILS # (AUTO) 0.2 K/uL (0-0.4); EOSINOPHILS % (AUTO) 2.2 % (0.0-4.0); HEMATOCRIT 31.8 % (36-48); HEMOGLOBIN 10.7 g/dL (12.0-16.0); LYMPHOCYTES # (AUTO) 2.9 K/uL (2.5-16.5); LYMPHOCYTES % (AUTO) 32.9 % (20.5-51.1); MEAN CORPUSCULAR HEMOGLOBIN 28 pg (27-31); MEAN CORPUSCULAR HGB CONC 34 g/dL (33-37); MEAN CORPUSCULAR VOLUME 81.5 fL (80-94); MONOCYTES # (AUTO) 0.9 K/uL (0.8-1.0); MONOCYTES % (AUTO) 9.8 % (1.7-9.3); NEUTROPHILS # (AUTO) 4.8 K/uL (1.8-7.7); NEUTROPHILS % (AUTO) 54.5 % (42.2-75.2); PLATELET COUNT (AUTO) 132 K/uL (140-450); RED CELL DISTRIBUTION WIDTH 15.6 % (11.6-13.7); WHITE BLOOD COUNT (AUTO) 8.9 K/uL (4.8-10.8)
[2023-03-30 10:41] LABS: CARBON DIOXIDE 25.4 mmol/L (21-32); CHLORIDE 107 mmol/L (98-107); CREATININE 0.7 mg/dL (0.6-1.3); GLUCOSE 237 mg/dL (74-106); POTASSIUM 3.4 mmol/L (3.5-5.1); SODIUM SERUM 140 mmol/L (136-145); UREA NITROGEN, BLOOD 8 mg/dL (7-18)
[2023-03-30] MEDS: INSULIN LISPRO SLIDING SCALE 100 UNITS/ML VIAL SUBQ PRN (12:00)
[2023-03-30] MEDS ORDERED: PANT40EC PO (14:00)
--- NOTE | 2023-03-30 16:15 | NUR ---
D/C HOME VIA WHEELCHAIR ACCOMPANIED BY PT. SON IN-LAW -MOODY. IN STABLE CONDITION. INFORMED CHARGE NURSE CHRIS BOYLE.
== END 2023-03-30 16:15 | disposition home or self-care (01) | DRG 871 ==
LOC: MED 19:33 → MTU 03-22 00:32
PROVIDERS: ADMIT Hospitalist; ATTEND Emergency Medicine
PROC: 0D9670Z Drainage of Stomach with Drainage Device, Via Natural or Artificial Opening (ICD-10-PCS; principal; 2023-03-23)
DX: A41.9 Sepsis, unspecified organism (principal); J18.9 Pneumonia, unspecified organism; K56.609 Unspecified intestinal obstruction, unspecified as to partial versus complete obstruction; R71.0 Precipitous drop in hematocrit; K92.2 Gastrointestinal hemorrhage, unspecified; E78.5 Hyperlipidemia, unspecified; I10 Essential (primary) hypertension; E11.9 Type 2 diabetes mellitus without complications; Z20.822 Contact with and (suspected) exposure to COVID-19; Z90.49 Acquired absence of other specified parts of digestive tract; Z90.710 Acquired absence of both cervix and uterus
CPT/HCPCS: 36415; 71045; 74018; 74022; 74250; 80048; 80053; 81003; 82948; 83690; 83735; 85025; 87040; 87081; 87086; 96361; 96374; 96375; 99285; C9113; J0360; J1170; J1644; J2001; J2270; J2405; J2543; J3475; J3480; J7030; J7060; Q0092; Q9967

== ENCOUNTER 2024-05-22 00:30 | Inpatient (IN) | payer OTHER ==
[~2024-05-22] VITALS: Ht 162.6 cm; Wt 90.3 kg
[~2024-05-22 00:30] MED LIST changes: +PANT40EC PO
[2024-05-22 00:32] VITALS: BP 180/76; PULSE 90; RESP 18; TEMP 98.1; O2SAT 98
[2024-05-22 01:35] LABS: BASOPHILS # (AUTO) 0.1 K/uL (0.00-0.22); BASOPHILS % (AUTO) 0.5 % (0.0-2.0); EOSINOPHILS # (AUTO) 0.2 K/uL (0-0.4); EOSINOPHILS % (AUTO) 1.5 % (0.0-4.0); HEMATOCRIT 41.4 % (36-48); HEMOGLOBIN 14.1 g/dL (12.0-16.0); LYMPHOCYTES # (AUTO) 3.2 K/uL (2.5-16.5); LYMPHOCYTES % (AUTO) 24.2 % (20.5-51.1); MEAN CORPUSCULAR HEMOGLOBIN 29 pg (27-31); MEAN CORPUSCULAR HGB CONC 34 g/dL (33-37); MEAN CORPUSCULAR VOLUME 85.6 fL (80-94); MONOCYTES # (AUTO) 0.8 K/uL (0.8-1.0); NEUTROPHILS % (AUTO) 67.8 % (42.2-75.2); PLATELET COUNT (AUTO) 190 K/uL (140-450); RED BLOOD CELL COUNT(AUTO) 4.84 MIL/uL (4.20-5.40); RED CELL DISTRIBUTION WIDTH 14.9 % (11.6-13.7); WHITE BLOOD COUNT (AUTO) 13.3 K/uL (4.8-10.8)
[2024-05-22 01:46] LABS: ANION GAP 13.8 (8-16); CALCIUM 9.2 mg/dL (8.5-10.1); CARBON DIOXIDE 25.9 mmol/L (21-32); CHLORIDE 102 mmol/L (98-107); CREATININE 0.7 mg/dL (0.6-1.3); GLUCOSE 228 mg/dL (74-106); POTASSIUM 3.7 mmol/L (3.5-5.1); SODIUM SERUM 138 mmol/L (136-145); UREA NITROGEN, BLOOD 13 mg/dL (7-18)
[2024-05-22 01:54] LABS: ALBUMIN 3.6 g/dL (3.4-5.0); BILIRUBIN,DIRECT 0.1 mg/dL (0.0-0.3); TOTAL BILIRUBIN 0.3 mg/dL (0.0-1.0); TOTAL PROTEIN, SERUM 7.5 g/dL (6.4-8.2)
[2024-05-22] MEDS: MORPHINE SULFATE 4 MG/ML SYR IVP ONE (05:10)
[2024-05-22] MEDS: ONDANSETRON 4 MG/2 ML VIAL IVP ONE (05:10)
[2024-05-22] MEDS ORDERED: ACETAMINOPHEN 325 MG TAB PO PRN (06:00)
[2024-05-22] MEDS ORDERED: NACL 0.9% 1,000 ML IV SCH (06:00)
[2024-05-22] MEDS: ENOXAPARIN 40 MG/0.4 ML SYR SUBQ SCH (09:04)
[2024-05-22] MEDS ORDERED: LOSA-272 PO (09:21)
[2024-05-22] MEDS: DEXT 5% /NACL 0.9% 1,000 ML IV SCH (12:50)
[2024-05-22] MEDS ORDERED: POLYETHYLENE GLYCOL 17 GM PO SCH (13:00)
[2024-05-22] MEDS ORDERED: DOCUSATE SODIUM 100 MG GELCAP PO PRN (13:00)
[2024-05-22] MEDS ORDERED: POLYETHYLENE GLYCOL 17 GM/PKT PO PRN (13:10)
[2024-05-22] MEDS: GABAPENTIN 300 MG CAP PO SCH (21:47)
[2024-05-22] MEDS: ATORVASTATIN 20 MG TAB PO SCH (21:47)
[2024-05-22 22:30] VITALS: RESP 16; O2SAT 96
[2024-05-23 00:11] VITALS: RESP 74; O2SAT 94
[2024-05-23 04:00] VITALS: BP 98/43; PULSE 67; RESP 16; TEMP 97; O2SAT 94
[2024-05-23 06:09] LABS: BASOPHILS % (AUTO) 0.4 % (0.0-2.0); EOSINOPHILS # (AUTO) 0.2 K/uL (0-0.4); EOSINOPHILS % (AUTO) 2.7 % (0.0-4.0); HEMATOCRIT 36.4 % (36-48); HEMOGLOBIN 12.3 g/dL (12.0-16.0); LYMPHOCYTES # (AUTO) 3.3 K/uL (2.5-16.5); LYMPHOCYTES % (AUTO) 43.1 % (20.5-51.1); MEAN CORPUSCULAR HEMOGLOBIN 29 pg (27-31); MEAN CORPUSCULAR HGB CONC 34 g/dL (33-37); MEAN CORPUSCULAR VOLUME 85.8 fL (80-94); MONOCYTES # (AUTO) 0.5 K/uL (0.8-1.0); MONOCYTES % (AUTO) 6.7 % (1.7-9.3); NEUTROPHILS # (AUTO) 3.6 K/uL (1.8-7.7); NEUTROPHILS % (AUTO) 47.1 % (42.2-75.2); PLATELET COUNT (AUTO) 164 K/uL (140-450); RED BLOOD CELL COUNT(AUTO) 4.24 MIL/uL (4.20-5.40); RED CELL DISTRIBUTION WIDTH 14.5 % (11.6-13.7); WHITE BLOOD COUNT (AUTO) 7.7 K/uL (4.8-10.8)
[2024-05-23 06:31] LABS: ANION GAP 11.8 (8-16); CALCIUM 8.1 mg/dL (8.5-10.1); CARBON DIOXIDE 25.1 mmol/L (21-32); CHLORIDE 107 mmol/L (98-107); CREATININE 0.6 mg/dL (0.6-1.3); GLUCOSE 201 mg/dL (74-106); POTASSIUM 3.9 mmol/L (3.5-5.1); SODIUM SERUM 140 mmol/L (136-145); UREA NITROGEN, BLOOD 9 mg/dL (7-18)
[2024-05-23] MEDS ORDERED: DEXTROSE 50% 50 ML SYR IVP PRN (06:40)
[2024-05-23] MEDS: BLOOD GLUCOSE MONITORING 1 DEV DEV FS SCH (07:05)
[2024-05-23] MEDS: INSULIN LISPRO SLIDING SCALE 100 UNITS/ML VIAL SUBQ PRN (07:07)
[2024-05-23 08:00] VITALS: BP 150/77; PULSE 68; RESP 18; TEMP 97.7; O2SAT 100
[2024-05-23] MEDS: amLODIPine 5 MG TAB PO SCH (09:34)
[2024-05-23] MEDS: PANTOPRAZOLE 40 MG TABEC PO SCH (09:35)
[2024-05-23] MEDS: LOSARTAN 50 MG TAB PO SCH (09:35)
[2024-05-23 13:37] VITALS: BP 150/77; PULSE 68; RESP 18; TEMP 97.7
== END 2024-05-23 14:10 | disposition home or self-care (01) | DRG 395 ==
LOC: MED 00:30 → MTU 06:01
PROVIDERS: ADMIT Student in an Organized Health Care Education/Training Program; ATTEND Student in an Organized Health Care Education/Training Program
DX: K43.6 Other and unspecified ventral hernia with obstruction, without gangrene (principal); I10 Essential (primary) hypertension; E11.9 Type 2 diabetes mellitus without complications; J45.909 Unspecified asthma, uncomplicated
CPT/HCPCS: 36415; 74250; 80048; 80076; 82948; 83690; 85025; 87081; 96372; 96374; 96375; 99285; J1650; J1815